=== PATIENT | female | born 1950 | race African-American/Black ===

== ENCOUNTER → 2016-12-25 | Outpatient (CLI) | payer OTHER | LOC: ULTRA 12:46 | DX: M79.605 Pain in left leg (principal); R60.9 Edema, unspecified ==

== ENCOUNTER → 2019-05-03 | Outpatient (CLI) | payer OTHER, BC | LOC: SJCVC 15:02 | DX: I45.10 Unspecified right bundle-branch block (principal); I25.810 Atherosclerosis of coronary artery bypass graft(s) without angina pectoris; E78.00 Pure hypercholesterolemia, unspecified; I63.421 Cerebral infarction due to embolism of right anterior cerebral artery; I73.9 Peripheral vascular disease, unspecified; I12.9 Hypertensive chronic kidney disease with stage 1 through stage 4 chronic kidney disease, or unspecified chronic kidney disease; E11.22 Type 2 diabetes mellitus with diabetic chronic kidney disease; N18.3 Chronic kidney disease, stage 3 (moderate); E11.319 Type 2 diabetes mellitus with unspecified diabetic retinopathy without macular edema; E11.40 Type 2 diabetes mellitus with diabetic neuropathy, unspecified; Z79.82 Long term (current) use of aspirin; Z86.73 Personal history of transient ischemic attack (TIA), and cerebral infarction without residual deficits; Z95.1 Presence of aortocoronary bypass graft; Z79.899 Other long term (current) drug therapy ==

== ENCOUNTER → 2019-06-20 | Outpatient (CLI) | payer OTHER, BC | LOC: SJCVCIMAG 13:49 | DX: I65.23 Occlusion and stenosis of bilateral carotid arteries (principal); I63.421 Cerebral infarction due to embolism of right anterior cerebral artery; I73.9 Peripheral vascular disease, unspecified ==

== ENCOUNTER → 2020-02-09 | Outpatient (CLI) | payer OTHER, BC | LOC: BC 10:12 | PROVIDERS: ATTEND Family Medicine | DX: Z12.31 Encounter for screening mammogram for malignant neoplasm of breast (principal); N60.82 Other benign mammary dysplasias of left breast; N60.81 Other benign mammary dysplasias of right breast; N64.89 Other specified disorders of breast ==

== ENCOUNTER 2020-04-10 17:48 | Inpatient (IN) | payer OTHER, BC ==
[~2020-04-10] VITALS: Ht 162.6 cm; Wt 127.0 kg
--- NOTE | ~2020-04-10 | EMS ---
[facility] [address] [place] [address] EMS Patient Care Report Name: MALA DEE Room #: REG JEFF Ellison#: [id number] Admission: 04/10/20 Attend Phys: Discharge: Date of : 50 Report #: [id number] THIS REPORT FOR: //name// Report Transmitted: 04/10/2020 20:15 EMS [facility] Incident [id number] @ 04/10/2020 17:01 Incident Location [address] [place] [address] Patient MALA NOVA Female, 69 Years 1950 Patient Address [address] [place] [address] Patient History Diabetes,Hypertension (HTN),Stroke/CVA,Hyperlipidemia,Hypothyroidism,Chronic Kidney Disease, Patient Allergies Sulfa, Patient Medications Other, Rosuvastatin, Glimepiride, Metformin, Aspirin, Bystolic, Levothyroxine, Vitamin D, Chief Complaint Increasing weakness Disposition Transported No Lights/[place] Dispatch Reason Sick Person Transported To [facility] Narrative H.P.I.: Weakness [facility] [address] [place] [address] EMS Patient Care Report Name: MALA DEE Room #: REG ER Scot#: [id number] Admission: 04/10/20 Attend Phys: Discharge: Date of : 50 Report #: [id number] H.P.I.: Mala Nova, a 69 y.o.f., has experienced increasing weakness over the past two weeks. She was being seen by her home health nurse today. The nurse was concerned Mala couldn't stand and walk, as she was normally able to do so. UPON ARRIVAL: OPFD was on scene and working on moving Mala from the upstairs to the downstairs with her electric stair chair. Once down stairs I found Mrs. Nova to be awake and in no distress. She had no complaints beyond weakness. DISPOSITION: Once downstairs her son assisted her onto the stretcher. We secured her in the prescribed manner and transported her non-emergently to [facility] as per her request. No incidents or changes en route. Info-only radio report with [facility]. We were directed to rm. 5. We slid her to the hospital bed using the sheet from the stretcher. song Penaloza R.N., received my report. Initial Vitals @17:27P: 98,R: 24,BP: 162/76,Pain: 0/10,GCS: 15,Temp: 101.6F,Glucose: 111,SpO2: 93,Revised Trauma: 12, Assessments @17:30MENTAL:Person Oriented,Time Oriented,Place Oriented,Event Oriented,SKIN:HEENT:Head/Face: No Abnormalities,LUNG SOUNDS:ABDOMEN:PELVIS//GI:EXTREMITIES:PULSE:NEURO:Abnormal Gait,Weakness Right-Sided,Weakness Left-Sided, Impression Generalized Weakness Procedures @PTASurgical Mask on PatientResponse: Unchanged Timeline ORIENTAL MEDICINE PRACTITIONER,Surgical Mask on Patient,Response: Unchanged 16:59,Call Received 16:59,Psap Call 17:01,Dispatched 17:01,En Route 17:09,On Scene 17:10,At Patient 17:24,Depart Scene [facility] [address] [place] [address] EMS Patient Care Report Name: CARLA NOVAFORD Room #: REG JEFF Lindsey.#: [id number] Admission: 04/10/20 Attend Phys: Discharge: Date of : 50 Report #: [id number] 17:27,BP: 162/76 M,PULSE: 98,RR: 24 R,SPO2: 93 Ox,ETCO2: ,B,PAIN: 0,GCS: 15, 17:41,At Destination 18:07,Call Closed Disclaimer v1.1 Copyright 2020 [employer] This EMS Care Summary contains data elements from the applicable legal record (which may be displayed differently). It is designed to provide pertinent information for the following purposes: continuity of care, clinical quality, and state data reporting. The complete legal record is available to ED staff and administrators of the receiving hospital in [employer] Patient Tracker. All data is provided "as is."
[2020-04-10 17:49] VITALS: BP 198/118
[2020-04-10 20:45] LABS: HEMATOCRIT 25.2 % (37.0-47.0); HEMOGLOBIN 7.9 gm/dL (12.0-15.0); MCH 30.3 pg (26.0-34.0); MCHC 31.6 g/dL (28.0-37.0); MCV 95.8 fL (80.0-100.0); PLATELET COUNT 293 thou/uL (150-400); RBC 2.62 mil/uL (4.20-5.00); WBC 17.4 thou/uL (4.0-11.0)
[2020-04-10 20:51] LABS: CALCIUM 8.9 mg/dL (8.5-10.1); CREATININE 1.6 mg/dL (0.6-1.0)
[2020-04-10 20:52] LABS: POTASSIUM 4.7 mmol/L (3.5-5.1)
[2020-04-10 21:02] LABS: ABSOLUTE NEUTROPHILS 14.6 thou/uL (1.4-8.2)
[2020-04-10 21:04] LABS: TOXIC GRANULATION 1+
[2020-04-10 21:05] LABS: ALBUMIN 2.4 g/dL (3.4-5.0); DIRECT BILIRUBIN 0.8 mg/dL (<0.1-0.2); TOTAL BILIRUBIN 2.8 mg/dL (0.2-1.0); TOTAL PROTEIN 6.3 g/dL (6.4-8.2); TROPONIN-I 0.31 ng/mL (<0.06)
[2020-04-10 21:24] LABS: URINE BILIRUBIN 1+ (Negative); URINE BLOOD 3+ (Negative); URINE CLARITY SL CLOUDY; URINE COLOR YELLOW; URINE GLUCOSE-RANDOM* NEGATIVE (Negative); URINE KETONES TRACE (Negative); URINE LEUKOCYTES-REFLEX NEGATIVE (Negative); URINE PROTEIN (DIPSTICK) 3+ (Negative); URINE SPECIFIC GRAVITY >= 1.030 (1.005-1.035)
[2020-04-10 21:26] LABS: ICTOTEST (BILI CONFIRMATORY) Positive (Negative); URINE NITRITE-REFLEX POSITIVE (Negative)
[2020-04-10 21:29] LABS: SQUAMOUS >10 Many /LPF (0-3)
[2020-04-10 21:30] LABS: BACTERIA-REFLEX >30 Many /HPF (None Seen); FINE GRANULAR CASTS 4-10 Moderate /LPF (None Seen)
[2020-04-10 21:31] LABS: AMORPHOUS URATES Few /LPF (None Seen); URINE RBC 3-10 Few /HPF (0-2); URINE WBC-REFLEX 6-15 Few /HPF (0-5)
[2020-04-10] MEDS ORDERED: TELMISARTAN80 MG PO (23:24)
[2020-04-10] MEDS ORDERED: EZETIMIBE10 MG PO (23:24)
--- NOTE | 2020-04-11 07:24 | EKG ---
[facility] [place] [address] ELECTROCARDIOGRAM REPORT Name: BAILEE DEE Room #: 170-5 ADM IN M.R.#: [id number] Admission: 04/10/20 Attend Phys: Victor Hugo Melo MD Discharge: Date of : 50 Report #: [id number] [facility] ED Test Date: 2020-04-10 Test Time: 21:28:51 Pat Name: BAILEE NOVA Department: Room: 170 Gender: F Chief Medical Officer: MPARK : 1950 Requested By: Alison Lopez Order Number: [id number] MD: Hilario Melvin Measurements Intervals [place] Rate: 82 P: 55 ND: 154 QRS: -39 QRSD: 170 T: 199 QT: 469 QTc: 548 Interpretive Statements Sinus rhythm Right bundle branch block LVH with IVCD and secondary repol abnrm Prolonged QT interval No previous ECG available for comparison Electronically Signed On 04-11-2020 7:24:40 REED PRESS FEEDER by Hilario Melvin [email or web address] <ELECTRONICALLY SIGNED> By: Hilario Melvin MD, [facility] 04/11/20 07 27 27 Hilario Melvin MD, FACC /EPI
[2020-04-11 12:00] VITALS: BP 176/46
--- NOTE | 2020-04-11 15:01 | NUR ---
69 year old female presents from home with weakness. Stroke history with residual L arm and leg weakness, patient reports normally is able to transfer and ambulate with a walker. Weakness has progressed over the last 2-3 weeks. She denies cough or dyspnea. Pt does have sacral wounds but denies having pain in this area. Reports of "low grade fever", temp of 99.7 on arrival. Pt reports her son takes care of her, no in home assistance. COVID AG negative on 04-10-2020 as well as PCR negative on 04-10-2020. Patient admitted under PCP Dr. Melo for Sepsis possibly from UTI, prior stroke with left sided residual arm and leg weakness, HTN, HLD and CHF. Patient admitted in IV Rocephin, checking urine for cultures and blood cultures PT/OT orders in for assessment of discharge needs. Son is listed at Antonio Urbano at [phone]. Spoke with son Antonio at 1430 on 04-11-2020 and patient does live independently where son checks on her. The son and the patient have been trying to get the patient to an acute rehab setting for increased weakness from home. Antonio reports today he was alerted that is mother was approved with her secondary [employer] for acute rehab. Spoke with risk consulting treasury director and a 5 North consult has been put in. Notified Dr. Melo as well. Explained CM role and notified CM will follow case for patients discharge needs.
[2020-04-11 16:05] VITALS: BP 176/46
[2020-04-11 17:19] VITALS: BP 177/71
--- NOTE | 2020-04-11 20:07 | NUR ---
ASSUMED CARE OF PT AT APPROX 1800 FROM ER D/T PROGRESSIVE WEAKNESS. ORIENTED PT TO ROOM. TOOK PHOTOS OF SACRAL WOUNDS. REPORTED OFF TO NOC NURSE.
[2020-04-11 22:07] VITALS: BP 178/51
[2020-04-12 04:12] VITALS: BP 164/57
[2020-04-12 05:03] LABS: HEMATOCRIT 23.3 % (37.0-47.0); HEMOGLOBIN 7.2 gm/dL (12.0-15.0); MCH 30.1 pg (26.0-34.0); MCHC 31.1 g/dL (28.0-37.0); MCV 96.6 fL (80.0-100.0); RBC 2.41 mil/uL (4.20-5.00); RDW 14.7 % (10.5-14.5); WBC 16.1 thou/uL (4.0-11.0)
[2020-04-12 05:08] LABS: CALCIUM 8.7 mg/dL (8.5-10.1); CREATININE 1.8 mg/dL (0.6-1.0); POTASSIUM 3.4 mmol/L (3.5-5.1)
--- NOTE | 2020-04-12 07:27 | NUR ---
PATIENT CARES WERE ASSUMED AT SHIFT CHANGE. PATIENT WAS ASSESSED AND MEDS WERE PASSED. PATIENT DID SLEEP MOST OF THIS SHIFT. NO REQUEST OR C/O PAIN. THIS SHIFT FOR THIS PATIENT WAS UNEVNTFULL
[2020-04-12 08:45] VITALS: BP 152/49
--- NOTE | 2020-04-12 09:00 | NUR ---
WOUND CARE CONSULT; PT ALERT, EATING BREAKFAST, TURN SUPERVISOR ELROY IN ROOM, STATES SHE TOOK PHOTO YESTERDAY AND PHOTO IS GOOD PICTURE OF WOUND STATUS, PT WANTS WOUND DR TO ASSESS WOUND, FROM PHOTO NONVIABLE TISSUE PRESENT, UNSTAGEABLE, PT STATES SON WAS CARING FOR WOUND AT HOME AND USING SOMETHING IN 'WHITE BOX' BUT COULD NOT RECALL WHAT IT WAS, STATES SHE HAS NOT SEEN A WOUND DR, WILL CONSULT DR OLIVARES/ELVIN TURN SUPERVISOR AWARE
--- NOTE | 2020-04-12 09:55 | NUR ---
PT ON SERVICE WITH [facility] PRIOR TO ADM FAXED CLINICAL UPDATE SPOKE WITH PATRICIA IN INTAKE SHE RECEIVED UPDATE. DP TO FOLLOW.
--- NOTE | 2020-04-12 10:53 | NUR ---
QUINTON Dee at [facility] [phone] returned call and did say as son had anticipated patient to be admitted to [facility] prior to admit, she would be willing to look at the patient again if need but understood the patient is in house and being treated for UTI and possible rehab on .
[2020-04-12 12:08] VITALS: BP 178/64
[2020-04-12 16:06] VITALS: BP 188/66
--- NOTE | 2020-04-12 18:24 | NUR ---
ASSUMED CARE OF PT AT SHIFT CHANGE. ASSESSMENTS CHARTED. MEDS GIVEN PER JUN. PT A&OX4, C/O PAIN ALL OVER. NOTIFIED , WHO PLACE ORDERS LATER IN THE DAY. KERR CATHETER CAME OUT WHILE MOVING PT, PUREWICK IN PLACE NOW. WOUND CARE ASSESSED SACRAL WOUNDS AND PLAN ON SURGICAL DEBRIDEMENT IN THE MORNING. PELVIC CT AND CARDIAC CLEARANCE TO BE COMPLETE BEFORE SURGERY. WILL CONTINUE TO MONITOR AND FOLLOW POC.
[2020-04-12 19:17] VITALS: BP 153/54
[2020-04-13] VITALS (28 sets, daily range): BP systolic 11–155; BP diastolic 45–70
[2020-04-13 03:56] LABS: HEMATOCRIT 22.2 % (37.0-47.0); HEMOGLOBIN 6.9 gm/dL (12.0-15.0); MCH 29.7 pg (26.0-34.0); MCV 95.7 fL (80.0-100.0); RBC 2.32 mil/uL (4.20-5.00); RDW 14.8 % (10.5-14.5); WBC 15.3 thou/uL (4.0-11.0)
[2020-04-13 04:04] LABS: CALCIUM 8.5 mg/dL (8.5-10.1); CREATININE 2.3 mg/dL (0.6-1.0)
--- NOTE | 2020-04-13 08:56 | NUR ---
pt assisted with with repositioning and cleaned up after 2 incon't episodes, prn pain meds given for wound pain, npo since mnoc for surg. scheduled for today. bg low at hs after juice and yogurt given called dr sheridan and received order for amp of D50 AND FLUIDS. REPORT GIVEN TO NEXT SHIFT TO CON'T PPOC.
--- NOTE | 2020-04-13 11:22 | NUR ---
DR. CROFT REPORTS CHANGE IN MENTAL STATUS. NORMALLY CONVERSANT YESTERDAY, NON-VERBAL TODAY. NSR PER TELE. BG LABILE. TO CAT SCAN FOR CT HEAD, THEN TO ICU BY BED, REPORT TO JOSELINE CADE. TELEMETRY EQUIPMENT SECURED.
--- NOTE | 2020-04-13 11:45 | NUR ---
PATIENT ADMITTED TO ICU 250 FROM 2N ROOM 206 VIA BED AT 1110. ATTACHED TO CARDIAC MONITORS AND BP MONITORED. O2 SAT PER PULSE OX. PATIENT IS LETHARGIC AND NOT SPEAKING. ACCUCHECK DONE AND NOTED TO BE 48. D50 GIVEN PER ORDER.
--- NOTE | 2020-04-13 13:00 | NUR ---
PATIENT IS MORE RESPONSIVE AND ABLE TO ANSWERS QUESTIONS WITH A YES OR NO RESPONSE AND MOVING RT ARM SPONTANOUSLY.
--- NOTE | 2020-04-13 14:30 | NUR ---
SPOKE WITH SON SHARLA AND UPDATED HIM ON HIS MOTHER'S STATUS.
--- NOTE | 2020-04-13 15:14 | EKG ---
[place] [address] [facility] [place] [address] ELECTROCARDIOGRAM REPORT Name: BAILEE DEE Room #: 250-P ADM IN M.R.#: [id number] Admission: 04/10/20 Attend Phys: Victor Hugo Melo MD Discharge: Date of : 50 Report #: [id number] [facility] Test Date: 2020-04-12 Test Time: 16:00:31 Pat Name: BAILEE NOVA Department: Room: 250 Gender: F Aircraft Rigging And Controls Mechanic: Spencer ZUNIGA : 1950 Requested By: Ambrosio Rowe Order Number: [id number] MD: Guille Plascencia Measurements Intervals [place]e Rate: 69 P: 34 NJ: 152 QRS: -36 QRSD: 164 T: 193 QT: 463 QTc: 496 Interpretive Statements Sinus rhythm Right bundle branch block LVH with IVCD and secondary repol abnrm Borderline prolonged QT interval Compared to ECG 04/10/2020 21:28:51 Premature ventricular complexes are now present Electronically Signed On 04-13-2020 15:14:03 ASSISTANT FOOTBALL COACH by Guille Plascencia [email or web address] <ELECTRONICALLY SIGNED> By: Guille Plascencia MD, [facility] 04/13/20 1514 1600 1600 Guille Plascencia MD, [facility] /EPI
--- NOTE | 2020-04-13 17:00 | NUR ---
PATIENT NOTED TO HAVE A CHANGE IN RHYTHM WITH WIDENING OF QRS COMPLEX. EKG DONE AT BEDSIDE AND UPDATED DR CROFT AND DR INIGUEZ, WITH TROPONIN AND MAG LEVELS. ORDERS NOTED FROM EACH.
--- NOTE | 2020-04-13 18:45 | NUR ---
PATIENT IS NOT PROGRESSING TOWARDS OUTCOME GOALS EVIDENT BY, CONTINUES TO HAVE BLOOD GLUCOSE LEVELS DROPPING INTO THE 30'S BUT REMAINS RESPONSIVE AND MOVING ABOUT MORE IN THE BED. SON, SHARLA CALLED FOR CONSENT TO GIVE BLOOD AND BECAME VERY ANGRY, ASKING WHAT ELSE COULD BE DONE INSTEAD OF GIVEN BLOOD, REQUESTING TO SPEAK WITH DR CROFT WHO WAS PAGED, UPDATED ON PATIENT STATUS AND BLOOD GLUCOSE LEVEL. ORDERS RECEIVED AND STATED HE WOULD SPEAK WITH THE SON. DR HAMILTON, THE NEUROLOGIST IN TO EXAMINE PATIENT. INFORMED OF LOW BLOOD SUGARS. ORDERS RECEIVED.
[2020-04-14] VITALS (31 sets, daily range): BP systolic 114–169; BP diastolic 45–79
--- NOTE | 2020-04-14 02:53 | NUR ---
This RN to bedside at 1900. This RN spoke with aleisha Alvarez around 2100 04/13/20 to update son on patients status and to obtain 2 nurse consent for patient to receive blood. All questions answered.
--- NOTE | 2020-04-14 03:00 | NUR ---
Lab having difficulty drawing labs to recheck Hg and K on patient. Discussed with Adela Jackson NP labs, ordered to give 1 unit PRBC's ordered based on prior labs. Also discussed fluactuating blood sugars, orders to change D10 rate. Will continue to monitor. Pt not progressing towards goals.
[2020-04-14 04:19] LABS: HEMATOCRIT 30.9 % (37.0-47.0); MCH 30.4 pg (26.0-34.0); MCHC 31.3 g/dL (28.0-37.0); MCV 97.1 fL (80.0-100.0); RBC 3.19 mil/uL (4.20-5.00); RDW 15.8 % (10.5-14.5); WBC 20.9 thou/uL (4.0-11.0)
[2020-04-14 04:24] LABS: HEMOGLOBIN 9.7 gm/dL (12.0-15.0)
[2020-04-14 04:33] LABS: CALCIUM 8.7 mg/dL (8.5-10.1); CREATININE 2.8 mg/dL (0.6-1.0); POTASSIUM 3.7 mmol/L (3.5-5.1)
--- NOTE | 2020-04-14 06:42 | NUR ---
This RN spoke to Dr. Melo regarding patients uncontrolled pain. New orders for IV pain medication. Discussed progress and erratic blood sugars. Patient is not progressing towards goals. Will continue to monitor.
--- NOTE | 2020-04-14 08:25 | NUR ---
PT W/DECLINE IN MEDICAL STATUS AND SUBSEQUENT TRANSFER TO ICU. PER DEPT POLICY, PT WILL BE PLACED ON HOLD. REQUEST NEW P.T. ORDER ONCE PT IS APPROPRIATE TO PARTICIPATE IN THERAPEUTIC ACTIVITIES.
--- NOTE | 2020-04-14 09:04 | NUR ---
PT GOING TO SURGERY AT [address] CROFT. ORDER TO GIVE 1 AMP D5O PRIOR TO LEAVING FOR SURGERY. DR. BHARDWAJ HERE AND STATES HE WILL GET CONSENT FROM SON.
--- NOTE | 2020-04-14 10:20 | EKG ---
[address] [place] [address] ELECTROCARDIOGRAM REPORT Name: CARLA NOVABAILEE Room #: 250-P ADM IN M.R.#: [id number] Admission: 04/10/20 Attend Phys: Victor Hugo Melo MD Discharge: Date of : 50 Report #: [id number] [facility] Test Date: 2020-04-13 Test Time: 15:57:32 Pat Name: BAILEE NOVA Department: Room: 250 P Gender: F Casting House Laborer: junito : 1950 Requested By: Victor Hugo Melo Order Number: [id number] MD: Ambrosio Rowe Measurements Intervals [place] Rate: 82 P: 42 MI: 136 QRS: -39 QRSD: 166 T: 173 QT: 474 QTc: 554 Interpretive Statements Sinus rhythm Atrial premature complexes in couplets Right bundle branch block LVH with IVCD and secondary repol abnrm Compared to ECG 04/12/2020 16:00:31 Atrial premature complex(es) now present Electronically Signed On 04-14-2020 10:20:10 SHAFT MECHANIC by Ambrosio Rowe [email or web address] <ELECTRONICALLY SIGNED> By: Ambrosio Rowe MD 04/14/20 1020 1557 1557 Ambrosio Rowe MD /EPI
[2020-04-14 10:38] LABS: APTT 28.6 Seconds (24.5-32.8); FIBRINOGEN 281.8 mg/dL (210-360); INR 1.3; PROTIME 13.5 Seconds (9.3-11.4)
[2020-04-14 10:51] LABS: ALBUMIN 1.9 g/dL (3.4-5.0); CALCIUM 8.6 mg/dL (8.5-10.1); CREATININE 3.2 mg/dL (0.6-1.0); POTASSIUM 3.5 mmol/L (3.5-5.1); TOTAL BILIRUBIN 2.6 mg/dL (0.2-1.0)
--- NOTE | 2020-04-14 11:49 | NUR ---
DR. BHARDWAJ CALLED PER HIS REQUEST TO GIVE HIM RESULTS OF LAB WORK WELL ULTRASOUND. PHYSICIAN STATED HE HAS ALREAD SEEN THE RESULTS AND HAS ADDED NEW ORDERS FOR STAT PIPIDA SCAN AND ROUTINE CT OF ABDOMEN AND PELVIS. PHYSICAIN STATES TO CALL HIM BACK WITH THESE RESULTS.
--- NOTE | 2020-04-14 14:36 | NUR ---
1436-pt to [facility] for pipida scan. pt transported by [facility] tech and icu charge weigher. pt is on transport hospital monitor.
--- NOTE | 2020-04-14 15:16 | NUR ---
A #6F TRIPLE LUMEN CENTRAL LINE WAS PLACED STAT AND PER MEDICAL NECESSITY PRIOR TO SURGERY. REQUESTED BY DR. CARRENO. THE RIGHT JUGULAR WAS WIDLEY PATENT. LINE WAS 25CM AND PLACED PER HOSPITAL POLICY. A STAT CHEST XRAY CONFIRMED LINE IN PROPER POSITION
--- NOTE | 2020-04-14 17:29 | NUR ---
CT RESULTS OF ABD AND PELVIS ARE RESULTED AND WERE CALLED BY THIS RN TO DR. CARRENO AND DR. CROFT. DR. CARRENO STATES THE PT WILL NEED TO GO TO OR [facility] AND THAT HE WILL CALL ANESTHESIA TO COORDINATE. HE ALSO STATED HE HAS PT'S SON'S PHONE NUMBER AND THAT HE WILL CALL HIM ABOUT PLAN TO OPERATE WELL.
--- NOTE | 2020-04-14 19:26 | NUR ---
PT LEFT UNIT FOR SURGERY AT 1645. PT WAS TRANSPORTED VIA BED WITH C PROGRAMMER AND ANESTHESIA PHYSICIAN. PT WAS GIVEN [address] MAIER ORDER PRIOR TO GOING TO SURGERY. PT HAD JUST HAD 25 GM D50 PRIOR TO THAT. DR MAIER AWARE AND ORDERED TO GIVE THE 2ND 25 GMS.
--- NOTE | 2020-04-14 22:39 | NUR ---
This RN spoke with Antonio Urbano, son to discuss patients status. Updated on care and all questions answered. Pt recovering well after surgery. Vital signs stable and no complaints of pain. Will continue to monitor.
[2020-04-15] VITALS (34 sets, daily range): BP systolic 89–158; BP diastolic 37–78
[2020-04-15 04:24] LABS: HEMATOCRIT 24.1 % (37.0-47.0); MCH 29.8 pg (26.0-34.0); MCHC 30.9 g/dL (28.0-37.0); MCV 96.5 fL (80.0-100.0); RBC 2.5 mil/uL (4.20-5.00); RDW 15.8 % (10.5-14.5); WBC 19.1 thou/uL (4.0-11.0)
[2020-04-15 04:28] LABS: HEMOGLOBIN 7.5 gm/dL (12.0-15.0)
[2020-04-15 04:38] LABS: ALBUMIN 1.6 g/dL (3.4-5.0); CALCIUM 8.1 mg/dL (8.5-10.1); CREATININE 3.6 mg/dL (0.6-1.0); POTASSIUM 4.1 mmol/L (3.5-5.1); TOTAL BILIRUBIN 2.2 mg/dL (0.2-1.0); TOTAL PROTEIN 5.4 g/dL (6.4-8.2)
--- NOTE | 2020-04-15 11:39 | EKG ---
[place] [address] [facility] [place] [address] ELECTROCARDIOGRAM REPORT Name: CARLA NOVABAILEE Room #: 250-P ADM IN M.R.#: [id number] Admission: 04/10/20 Attend Phys: Victor Hugo Melo MD Discharge: Date of : 50 Report #: [id number] [facility] Test Date: 2020-04-15 Test Time: 11:18:14 Pat Name: BAILEE NOVA Department: Room: 250 P Gender: F Wire Web Worker: : 1950 Requested By: Ambrosio Rowe Order Number: [id number] MD: Ambrosio Rowe Measurements Intervals [place] Rate: 62 P: 28 NE: 156 QRS: -35 QRSD: 168 T: 97 QT: 493 QTc: 501 Interpretive Statements Sinus rhythm Ventricular premature complex Right bundle branch block LVH with secondary repolarization abnormality Compared to ECG 04/13/2020 15:57:32 Electronically Signed On 04-15-2020 11:39:02 SCENIC DESIGNER by Ambrosio Rowe [email or web address] <ELECTRONICALLY SIGNED> By: Ambrosio Rowe MD 04/15/20 1139 1118 111 Ambrosio Rowe MD /BILLIE
--- NOTE | 2020-04-15 14:58 | NUR ---
CONSULTED TO REPLACED A CENTRAL LINE THE PATIENT PULLED OUT THIS AM. ORDER OBTAINED AND CONSENT NOTED. DISCUSED WITH THE PATIENT SHE IS MORE ALERT THIS AM. THE RIGHT IJ WAS WIDLEY PATENT. A #6F TRIPLE LUMEN CENTRAL LINE WAS PLACED PER HOSPITAL POLICY. LINE WAS 25CM AND ADVANCED WITHOUT DIFFICULTY. A STAT CHEST XRAY SHOWING LINE IN ATRIUM. LINE WITHDREW 2CM AND RELEASED FOR USE
--- NOTE | 2020-04-15 19:56 | NUR ---
NOTIFIED THAT THE PATIENT HAD PULLED OUT HER CENTRAL LINE AGIAN. SHE IS NOW RESTRAINED. A NEW CENTRAL LINE WAS PLACED PER PROTOCOL
--- NOTE | 2020-04-15 20:01 | NUR ---
ASSUMED CARE OF PT 0700. NEW CENTRAL LINE INSERTED IN AM PT SELF DISCONTINUED DURING SHIFT CHANGE. 1220 GLUCOSE HIGH. D10 STOPPED. NS STARTED. 1255 RENAL NOTIFIED OF LOW URINE OUTPUT. 1L BOLUS OF NS GIVEN. ID CONSULTED TODAY FOR PROPPER ABX COVERAGE. 1900 INITIATED RESTRAINTS AFTER PER GUERDA AFTER PT REMOVED CENTRAL LINE FOR SECOND TIME. NEW LINE IN PLACE 1999. AFEBRILE. OUTPUT 150 IN SHIFT. RENAL AWARE OF OUTPUT. NO BM TODAY.
[2020-04-16] VITALS (30 sets, daily range): BP systolic 131–173; BP diastolic 53–88
--- NOTE | 2020-04-16 07:39 | HC ---
[facility] [place] [address] CONSULTATION Name: BRYN DEESA Room #: 250-P ADM IN M.R.#: [id number] Admission: 04/10/20 Attend Phys: Victor Hugo Melo MD Discharge: Date of : 50 Report #: [id number] THIS REPORT FOR: cc: Victor Hugo Melo MD, Neal A. MD Barry,Fredis Lloyd MD ~ DATE OF SERVICE: 04/15/2020 INFECTIOUS DISEASE CONSULTATION ATTENDING PHYSICIAN: Dr. Melo. REASON FOR EVALUATION: Necrotizing skin and soft tissue infection involving the perineal site. HISTORY OF PRESENT ILLNESS: Chart reviewed, patient examined. This is a 69-year-old woman with known diabetes mellitus, has been complicated by vasculopathy, has had previous stroke involving the right middle cerebral artery, residual left spastic hemiparesis, who apparently was able to ambulate with a walker, had presented with progressive weakness, low-grade temperature elevation on 04/10, noted to have chronic gluteal left posterior thigh ulcers. On evaluation, was noted to have some fluctuance. Imaging suggested a large necrotizing abscess along the left upper inner thigh in subcutaneous space extending toward the left ischial tuberosity, soft tissue gas, underwent operative debridement, was found to have abscess, also noted to have urinary tract infection with isolation of E. coli and Proteus, has been on therapy at this point with ceftriaxone. She is seen in the Intensive Care Unit. She is not on supplemental oxygen. It is difficult to ascertain what her baseline is. She does respond, although it is not clear that she is able to comprehend. She has not been febrile. Otherwise, hemodynamically she is relatively stable. ALLERGIES: LISTED TO SULFA. CURRENT MEDICATIONS: Include ceftriaxone, atorvastatin, levothyroxine, metoprolol, levetiracetam, and oxycodone. PAST MEDICAL HISTORY: Diabetes mellitus, history of previous stroke with left-sided hemiplegia, hypertension, and hyper-cholesterol. SOCIAL HISTORY: She is disabled, nonsmoker, no ethanol, no illicit drug use. FAMILY HISTORY: Noncontributory. REVIEW OF SYSTEMS: Severely limited due to her encephalopathy. [facility] [address] [place] [address] CONSULTATION Name: CARLA NOVADALLAS Room #: 250-P [facility] IN .R.#: [id number] Admission: 04/10/20 Attend Phys: Victor Hugo Melo MD Discharge: Date of : 50 Report #: [id number] PHYSICAL EXAMINATION: GENERAL: She appears chronically ill and undernourished. She is in qutg-oq-rabpaqug distress, somewhat of a flat affect. VITAL SIGNS: Temperature most recent 96.9, pulse 61, respirations 11, blood pressure 138/60. SKIN: Warm, dry, no rashes. HEENT: Normocephalic. Extraocular muscles intact. NECK: Appears to be supple. LUNGS: Diminished breath sounds. HEART: Borderline bradycardic. No appreciated murmur. ABDOMEN: Mildly distended, soft, nontender. /RECTAL: Deferred. LABORATORY DATA: Chest x-ray shows cardiomegaly and mild interstitial opacities has been unchanged. Electrolytes: Sodium 134, potassium 4.1, chloride 100, bicarbonate 23, anion gap of 11, BUN and creatinine 42 and 3.6, glucose of 142. AST of 85, ALT of 36, alkaline phosphatase of 172, albumin 1.6, total protein of 5.4. CBC: White count of 19.1, H and H 7.5 24.1, platelets of 310. Operative note was reviewed and debridement of the left gluteal IT gangrene including skin, subcutaneous tissue, muscle and bone. CT abdomen and pelvis preop describes a large defect containing necrotizing abscess along the left upper inner thigh in the subcutaneous space extends toward the left ischial tuberosity. Hepatobiliary scan does not shows abnormal gallbladder ejection fraction of 18% without evidence of cystic duct obstruction. ASSESSMENT: Necrotizing infection involving the perineal area. The patient has diabetes mellitus. This is certainly difficult to ascertain if it has been well controlled, appears to be quite malnourished as well. We will continue empiric therapy, presume polymicrobial etiology to her abscess including aerobes, anaerobes as well as gram-positive negatives presumably as well. She is allergic to SULFA. We will extend the treatment with Zosyn. ___ she is in renal failure at this point. Continue wound care as prescribed, may need additional debridements. Prognosis is quite guarded. <ELECTRONICALLY SIGNED> By: Fredis Roy MD 04/16/20 0739 1049 1400 Fredis Roy MD /nt
[2020-04-16 07:43] LABS: HEMOGLOBIN 7.5 gm/dL (12.0-15.0); MCH 29.9 pg (26.0-34.0); MCHC 31.3 g/dL (28.0-37.0); MCV 95.6 fL (80.0-100.0); RBC 2.51 mil/uL (4.20-5.00); RDW 15.6 % (10.5-14.5); WBC 19.5 thou/uL (4.0-11.0)
--- NOTE | 2020-04-16 07:46 | NUR ---
ASSUMED PT CARE AT 1900. VSS. PT A&0 TO SELF ALONE. PT CONFUSED, AND CALLS OUT FOR HER SON SHARLA. U/0 THIS SHIFT WAS 125ML, DR MENDOZA AWARE. BATH THIS SHIFT. PT IS STABLE, NO SIGNIFICANT CHANGES OVER NOC. WILL CONTINUE TO MONITOR PER POC
[2020-04-16 08:16] LABS: ALBUMIN 1.7 g/dL (3.4-5.0); CALCIUM 7.9 mg/dL (8.5-10.1); POTASSIUM 4.3 mmol/L (3.5-5.1); TOTAL BILIRUBIN 1.9 mg/dL (0.2-1.0); TOTAL PROTEIN 5.7 g/dL (6.4-8.2)
--- NOTE | 2020-04-16 11:21 | HC ---
[facility] [place] [address] CONSULTATION Name: BRYN DEESA Room #: 250-P ADM IN M.R.#: [id number] Admission: 04/10/20 Attend Phys: Victor Hugo Melo MD Discharge: Date of : 50 Report #: [id number] THIS REPORT FOR: cc: Victor Hugo Melo MD, Neal A. MD Stephens, Thad A. MD ~ DATE OF SERVICE: 04/12/2020 WOUND CARE CONSULTATION PERSONAL PHYSICIAN: Victor Hugo Melo MD CHIEF COMPLAINT: Left gluteal and left posterior thigh ulcers. HISTORY OF PRESENT ILLNESS: This is a 69-year-old female who was admitted for sepsis, UTI and generalized weakness. Upon admission, the patient was noted to have a decubitus ulcer in her left gluteal and ischial region. I have been asked to see the patient for this. The patient states that she sleeps in a recliner most of the time and for the past week has been in it daily for most of the days. The patient states that is where the ulceration came from. The patient states she has never had any other ulcers before. The patient states she did have a low-grade fever at home. The patient initially was said that she had no pain in the ulcer; however, according to the initial H and P; however, when I spoke to the patient, the patient states, yes she does have fairly exquisite pain in that area. There are no other associated ulcerations noted at this time. PAST MEDICAL HISTORY: Significant for diabetes mellitus, hypertension, hypercholesterolemia, previous CVA with left-sided hemiplegia. CURRENT MEDICATIONS: Multiple, I reviewed the patient's medication list. DRUG ALLERGIES: SULFA, ____. SOCIAL HISTORY: The patient resides at home with her son, who is one of her primary caregivers. Does not smoke or drink alcohol. FAMILY HISTORY: Not pertinent to current medical condition. REVIEW OF SYSTEMS: CONSTITUTIONAL: The patient had low-grade fevers at home, but denies chills or sweats. NEUROLOGIC: The patient has progressive generalized weakness for the past several days with a chronic left-sided hemiparesis. Denies headache. EYES: No complaints. [facility] [address] [place] [address] [facility] #: [facility]-P ADM IN M.R.#: [id number] Admission: 04/10/20 Attend Phys: Victor Hugo Melo MD Discharge: Date of : 50 Report #: [id number] ENT: No complaints. CARDIAC: The patient denies chest pain, palpitations, has chronic lower extremity edema. RESPIRATORY: The patient denies any shortness of breath, cough or wheezes. GASTROINTESTINAL: The patient complains of generalized nausea, but no abdominal pain, no vomiting or diarrhea. GENITOURINARY: The patient denies urgency or frequency, but however, it was felt that the patient to have a urinary tract infection. SKIN: There are decubitus ulcers in the left gluteal and ischial region. PHYSICAL EXAMINATION: VITAL SIGNS: Temperature 36.9, pulse 69, respirations 18, BP 178/64. GENERAL: This is an alert and oriented x 3, ill-appearing black female, who is morbidly obese. HEENT: Normocephalic, atraumatic. Mucous membranes are dry. Pupils are round. Sclerae white. NECK: Supple, without JVD. LUNGS: Clear. HEART: Regular. ABDOMEN: Obese, soft, nontender. EXTREMITIES: Evaluation of the left ischiogluteal region reveals an unstageable decubitus ulcer, which is fluctuant and tender to palpation. Periwound is erythematous and warm. There is also scattered stage 3 decubitus ulcers in the left posterior thigh, which are nontender. EXTREMITIES: The patient has chronic venous insufficiency with stasis dermatitis, 2+ edema. Bilateral heels are intact. Distal pulses are intact. NEUROLOGIC: Cranial nerves 2-12 grossly intact. Motor and sensory grossly intact. LABORATORY DATA: White count 16.1, down from 17.4; hemoglobin 7.2. Urinalysis showed negative leukocyte esterase. Potassium 3.4. BUN 32, creatinine 1.8. BNP initially 2 days ago was 32,143. Albumin is 2.4. IMPRESSION AND PLAN: 1. Unstageable decubitus ulcer, left lower gluteal/ischial tuberosity region concerning for underlying abscess, possibly the source of the sepsis. Plan for this will be to start morphine, Silvadene cream to the area b.i.d. and p.r.n. We will put a low air loss mattress and turn every 2 hours. Surgical consult for possible I and D. I will contact Dr. Melo to decide which surgeon he would like to have contacted. I will speak to the surgeon about possibly imaging the area with a CT scan. 2. Stage 3 decubitus ulcer, left posterior thigh. Our plan for this will be to morphine, Silvadene as well as low air loss mattress and turn every 2 hours. 3. Protein-calorie malnutrition -- severe with albumin 2.4. Plan for protein-calorie malnutrition would be maximized the patient's oral protein [address] [address] CONSULTATION Name: BAILEE DEE Room #: 250-P ADM IN M.R.#: [id number] Admission: 04/10/20 Attend Phys: Victor Hugo Melo MD Discharge: Date of : 50 Report #: [id number] supplementation. 4. Generalized debility. Plan for the generalized debility would be utilize physical and occupational therapy for strengthening. 5. Continue all current meds. <ELECTRONICALLY SIGNED> By: Addi Linder MD 04/16/20 1121 [id number] 0036 Addi Linder MD /nt
--- NOTE | 2020-04-16 16:34 | NUR ---
PT HAD DEBRIDEMENT 04/14/20. WC FOLLOWING. PT CONTINUES ON IV ZOSYN. AWAITING THERAPY EVALS ONCE ABLE TO PARTICIPATE. REFERRAL HAD BEEN SENT TO [facility] THEY ARE FOLLOWING. CM TO FOLLOW INDICATED WITH DC PLANNING.
--- NOTE | 2020-04-16 17:36 | NUR ---
PT RESTING THE MAJORITY OF THE DAY. RIGHT WRIST RESTRAINED. SACRAL WOUND WAS OBSERVED/CLEANED/DRESSED BY WOUND CARE TEAM. NEW DTI FOUND ON LEFT HEEL. RIJ IN PLACE AND FUNCTIONING. OLIGUREA, PROVIDER AWARE. NO BM, AFEBRILE, REFUSES ALL MEALS. D50 GIVEN DUE TO HYPOGLYCEMIA. PT AND FAMILY HAVE BEEN UPDATED AND EDUCATED ON PT CONDITION AND POC. PT SLOWLY PROGRESSING TOWARDS POC.
[2020-04-17] VITALS (21 sets, daily range): BP systolic 100–168; BP diastolic 39–78
--- NOTE | 2020-04-17 04:50 | NUR ---
CARE ASSUMED 1900. PT ALERT AND ORIENTED TO SELF. PT IS ABLE TO MAKE SOME SOME NEEDS KNOWN LIKE WHEN SHE IS PAIN OR WANTS TO USE THE BATHROOM . C/O OF GENERALIZED PAIN. PT HAS LEFT SIDED WEAKNESS FROM PREVIOUS CVA. PT HAS GENERALIZED EDEMA ALL OVER HER BODY. NOTED TO HAD EXTENSIVE EDEMA TO THE RIGH ARM, WEEPING AND REDNESS AROUND THE FOREARM. WILL COMMUNICATED WITH PHYSICIAN. VITALS STABLE BUT BRADYCARDIC WHILE ASLEEP. DENIES ANY OTHER CONCERNS. WILL CONTINUE TO MONITOR.
[2020-04-17 06:22] LABS: ALBUMIN 1.6 g/dL (3.4-5.0); CALCIUM 7.7 mg/dL (8.5-10.1); CREATININE 4.2 mg/dL (0.6-1.0); PHOSPHORUS 5.4 mg/dL (2.6-4.7); POTASSIUM 4.2 mmol/L (3.5-5.1)
--- NOTE | 2020-04-17 09:04 | NUR ---
KERR CLAMPED IN EFFORT TO SEND URINE SAMPLE.
[2020-04-17 11:52] LABS: URINE BILIRUBIN NEGATIVE (Negative); URINE BLOOD 3+ (Negative); URINE CLARITY CLOUDY; URINE COLOR YELLOW; URINE GLUCOSE-RANDOM* NEGATIVE (Negative); URINE KETONES NEGATIVE (Negative); URINE LEUKOCYTES 1+ (Negative); URINE NITRITE NEGATIVE (Negative); URINE PROTEIN (DIPSTICK) 2+ (Negative); URINE UROBILINOGEN 0.2 E.U./dl (0.2-1.0)
[2020-04-17 11:56] LABS: PROT/CREAT RATIO 1.9; URINE CREATININE-RANDOM* 69.6 mg/dL; URINE PROTEIN-RANDOM* 133.4 mg/dL (<11.9)
[2020-04-17 12:19] LABS: AMORPHOUS URATES Moderate /LPF (None Seen); SQUAMOUS 0-3 Few /LPF (0-3)
[2020-04-17 12:20] LABS: BACTERIA 1-9 Few /HPF (None Seen); COARSE GRANULAR CASTS 0-3 Few /LPF (None Seen); URINE RBC 3-10 Few /HPF (0-2); URINE WBC None Seen /HPF (0-5)
--- NOTE | 2020-04-17 13:12 | 2DMMODE ---
[facility] [address] [place] [address] 2 D/M-MODE ECHOCARDIOGRAM Name: BRYN DEESA Room #: 250-P ADM IN M.R.#: [id number] Admission: 04/10/20 Attend Phys: Victor Hugo Melo MD Discharge: Date of : 50 Report #: [id number] THIS REPORT FOR: cc: Victor Hugo Melo MD, Neal A. MD Lammoglia, Francisco J. MD ~ ADDENDUM APPROVED REPORT Study performed: 04/16/2020 10:18:59 EXAM: Comprehensive 2D, Doppler, and color-flow Echocardiogram Patient Location: ICU Room #: 250 BSA: 2.21 HR: 80 bpm BP: 132/63 mmHg Other Information Study Quality: Adequate Risk Factors: Cardiac Risk Factors: HTN, Hyperlipidemia Indications CVA/TIA Hypertension/HDD 2D Dimensions IVSd: 12.31 (7-11mm) LVOT Diam: 19.61 (18-24mm) LVDd: 46.16 mm PWd: 16.18 (7-11mm) Ascending Ao: 30.17 (22-36mm) LVDs: 36.20 (25-40mm) Left Atrium: 40.87 (27-40mm) Aortic Root: 24.07 mm Volumes Left Atrial Volume (Systole) Single Plane 4CH: 45.41 mL Single Plane 2CH: 71.90 mL LA ESV Index: 30.00 mL/m2 Aortic Valve AoV Peak Lj.: 1.40 m/s AO Peak Gr.: 7.89 mmHg LVOT Max P.[address] [facility] [address] [place] [address] 2 D/M-MODE ECHOCARDIOGRAM Name: CARLA NOVACORAM Room #: 250-P [facility] IN ..#: [id number] Admission: 04/10/20 Attend Phys: Victor Hugo Melo, Discharge: Date of : 50 Report #: [id number] Mean Gr.: 3.13 mmHg LVOT Mean P.76 mmHg AO V2 Mean: 0.79 m/s LVOT Max V: 0.66 m/s AO V2 VTI: 27.30 cm LVOT Mean V: 0.39 m/s MATTHIAS (VTI): 1.54 cm2 LVOT V1 VTI: 13.92 cm MATTHIAS Vmax: 1.42 cm2 SV (LVOT): 42.03 mL Mitral Valve MV Peak Gr.: 2.88 mmHg ERO: 79.49 mm2 MV Mean Gr.: 1.08 mmHg E/A Ratio: 1.2 MV Decel. Time: 213.70 ms MV E Max Lj.: 0.87 m/s MV A Lj.: 0.74 m/s MV Max Lj.: 0.85 m/s MV Mean Lj.: 0.47 m/s MV VTI: 328.27 mm MVA VTI: 128.04 mm2 MR Radius: 0.91 cm MV PHT: 61.97 ms MR Als. Lj: 1.02 m/s MVA (PHT): 1.64 cm2 MR Flow: 532.87 mL/s TDI E/Lateral E': 9.67 Lateral E' Lj.: 0.09 m/s Pulmonary Valve PV Peak Lj.: 0.80 m/s PV Peak Gr.: 2.53 mmHg IA End Vmax: 0.71 m/s Pulmonary Vein P Vein S: 0.50 m/s P Vein A: 0.35 m/s P Vein D: 0.22 m/s P Vein A Dur.: 120.0 msec P Vein S/D Ratio: 2.27 Tricuspid Valve TR Peak Lj.: 3.09 m/s RAP Estimate: 48.00 mmHg TR Peak Gr.: 38.29 mmHg PA Pressure: 10.00 mmHg Left Ventricle The left ventricle is normal size. Mild concentric left ventricular hypertrophy. Left ventricular systolic function is mild to moderately decreased. LVEF is 35-40%. By visual estimation. Calculated ejection fraction appears to be greater than visualized 2D imaging Transmitral Doppler flow pattern suggests impaired LV relaxation. Right Ventricle [facility] [address] [place] [address] 2 D/M-MODE ECHOCARDIOGRAM Name: CARLA NOVACORAM Room #: 250-P ADM IN M.R.#: [id number] Admission: 04/10/20 Attend Phys: Victor Hugo Melo, Discharge: Date of : 50 Report #: [id number] The right ventricle is normal size. The right ventricular systolic function is normal. Atria Left atrium is at the upper limits of normal. The right atrium size is normal. Aortic Valve The aortic valve is normal in structure. No aortic regurgitation is present. There is no aortic valvular stenosis. Mitral Valve The mitral valve is normal in structure. Moderate to severe mitral regurgitation with an eccentric jet directed laterally along the left atrial wall No evidence of mitral valve stenosis. Tricuspid Valve The tricuspid valve is normal in structure. Moderate to severe tricuspid regurgitation. Pulmonic Valve The pulmonary valve is normal in structure. There is no pulmonic valvular regurgitation. Great Vessels The aortic root is normal in size. The inferior vena cava is dilated with a decrease in inspiratory collapse. Pericardium There is no pericardial effusion. <Conclusion> The left ventricle is normal size. Mild concentric left ventricular hypertrophy. LVEF is 35-40%. By visual estimation. Calculated ejection fraction appears to be greater than visualized 2D imaging Left atrium is at the upper limits of normal. The aortic valve is normal in structure. The mitral valve is normal in structure. Moderate to severe mitral regurgitation with an eccentric jet directed laterally along the left atrial wall The tricuspid valve is normal in structure. Moderate to severe tricuspid regurgitation. The pulmonary valve is normal in structure. The inferior vena cava is dilated with a decrease in inspiratory [facility] [address] [place] [address] 2 D/M-MODE ECHOCARDIOGRAM Name: BAILEE DEE Room #: 250-P [facility] IN M.R.#: [id number] Admission: 04/10/20 Attend Phys: Victor Hugo eMlo, Discharge: Date of : 50 Report #: [id number] collapse. There is no pericardial effusion. <ELECTRONICALLY SIGNED> By: Fredrick Frank MD 04/17/201311 11 11 Fredrick Frank MD /INF
[2020-04-17 14:52] LABS: HEMATOCRIT 23.9 % (37.0-47.0); HEMOGLOBIN 7.4 gm/dL (12.0-15.0); MCH 29.7 pg (26.0-34.0); MCHC 30.9 g/dL (28.0-37.0); MCV 96.2 fL (80.0-100.0); PLATELET COUNT 286 thou/uL (150-400); RBC 2.49 mil/uL (4.20-5.00); RDW 15.9 % (10.5-14.5); WBC 13.7 thou/uL (4.0-11.0)
--- NOTE | 2020-04-17 15:29 | NUR ---
JOSELINE Escudero kindly received report. pt to transfer to critical care tele bed- RM# 206. New pt room not ready at this time.
[2020-04-17 15:35] LABS: ABSOLUTE NEUTROPHILS 12.5 thou/uL (1.4-8.2); NUCLEATED RBCS 2 /100WBC; PLATELET ESTIMATE NORMAL
--- NOTE | 2020-04-17 18:07 | NUR ---
>>>>>>>>>>>> 1600 room not clean. >>>>>>>>>>>> 1715 room clean. with 2 rn assist, pt transferred to #206 in icu bed. >>>>>>>>>>>> 1735 notified Kota RN of need for 1600 antibiotic and 1700 blood sugar.
--- NOTE | 2020-04-17 20:01 | NUR ---
PT TRANSFERED FROM ICU ABOUT 1800PM, PT KMOWS HER NAME AND BIRTHDAY , BUT PT IS CONFUSED , PT IS ON R HAND SOFT RESTRANIT , PT'S BS WAS 44 AT 1810PM, RN HAS GIVING D50% 50ML IVP , RECHECK BS 84, PT IS CONTINUING D5@ 50ML/HR. RN HAS REPORTED TO NEXT SHIFT TO KEEP EYE OM PT.
[2020-04-18] VITALS (13 sets, daily range): BP systolic 124–169; BP diastolic 43–68
--- NOTE | 2020-04-18 04:01 | NUR ---
Assumed pt care at 1900. Pt is alert but confused. Pt is laying in bed. Continues to verbalize pain. Assessment completed and documented. Repositioning done. Pt is stable through the night. Hypoglycemia continues to be noted. Hypoglycemia treated. Scheduled meds administered to pt. Pt is NPO for a debridment. No acute events overnight. Continue to monitor. No further needs at this time.
[2020-04-18 05:36] LABS: ALBUMIN 1.8 g/dL (3.4-5.0); CREATININE 4.4 mg/dL (0.6-1.0); PHOSPHORUS 5.3 mg/dL (2.6-4.7); POTASSIUM 4.3 mmol/L (3.5-5.1)
[2020-04-18 07:26] LABS: HEMOGLOBIN 7.6 gm/dL (12.0-15.0); MCH 29.8 pg (26.0-34.0); MCHC 30.4 g/dL (28.0-37.0); RBC 2.55 mil/uL (4.20-5.00); WBC 13.6 thou/uL (4.0-11.0)
--- NOTE | 2020-04-18 13:11 | NUR ---
Patient cont in restraints. Patient to participate with therapy once more stable. Plan referral to [facility]OP.
--- NOTE | 2020-04-18 14:07 | PATH ---
[facility] [address] [place] [address] PATHOLOGY RPT PROCEDURE Name: CARLA NOVAMALA Room #: 206-P ADM IN M.R.#: [id number] Admission: 04/10/20 Date of : 50 Discharge: Report #: [id number] Path Case #: [id number] [facility] Accession Number: [id number] . 01 Material submitted: . PART A: gluteal cleft - LEFT GLUTEAL TISSUE. Modifiers: left PART B: bone - LEFT ISCHIAL TUBEROSITY BONE. Modifiers: left . 01 Clinical history: . LEFT GLUTEAL FORNIER'S GANGRENE DEBRIDEMENT WITH IRRIGATION WEAKNESS, UTI, SEPSI, ELEV TROPONIN . 02 Diagnosis: A. Skin and subcutaneous tissue, left gluteal tissue, debridement: - Marked acute inflammation along with ulceration as well as fibrinoid degeneration. . B. Bone, left ischial tuberosity, debridement: - Bone with marked acute inflammation. (IUV:sophia; 04/17/2020) QMS 04/17/2020 1334 Local . 02 Electronically signed: . Kandy Godoy MD, Pathologist NPI- [id number] . 01 Gross description: . A. The specimen is received in formalin, labeled "Mala Nova, left gluteal tissue". Received are multiple segments of yellow-brandt to spain-brown, necrotic-appearing soft tissue admixed with fragments of pale brandt to necrotic-appearing skin measuring 19.4 x 15.6 x 5.2 cm in aggregate dimensions. The specimen is submitted representatively in cassette A1. . B. The specimen is received in formalin, labeled "Mala Nova, left ischial tuberosity bone". Received are multiple segments of spain-brandt tissue admixed with a slight amount of light brandt bone measuring 3.0 x 2.2 x 0.5 cm in aggregate dimensions. The specimen is submitted entirely in cassette B1, following decalcification. (CAA; 04/16/2020) QA/QA 04/16/2020 1505 Local . 02 Pathologist provided ICD-10: L08.9, L98.499, M89.8X8 . 02 [place] [address] PATHOLOGY RPT PROCEDURE Name: MALA DEE Room #: 206-P ADM IN M.R.#: [id number] Admission: 04/10/20 Date of : 50 Discharge: Report #: [id number] Path Case #: [id number] Specimen Comment: A courtesy copy of this report has been sent to [phone] Specimen Comment: Report sent to Performed at: [address], [place] [id number] MD Ld Borges MD Phone: [phone] Performed at: [address] [id number] MD Kandy Goody MD Phone: [phone]
--- NOTE | 2020-04-18 14:16 | HC ---
[facility] [place] [address] CONSULTATION Name: BAILEE DEE Room #: 206-P ADM IN M.R.#: [id number] Admission: 04/10/20 Attend Phys: Victor Hugo Melo MD Discharge: Date of : 50 Report #: [id number] THIS REPORT FOR: cc: Victor Hugo Melo MD, Neal A. MD [facility] MD ~ DATE OF SERVICE: 04/12/2020 CARDIOLOGY CONSULTATION REASON FOR CONSULTATION: Cardiac clearance. HISTORY OF PRESENT ILLNESS: The patient is a 69-year-old, -Spanish female, with a history of coronary artery disease, status post CABG in 2010 as well as peripheral vascular disease, prior CVA with residual weakness, diabetes, hypertension, hyperlipidemia, chronic renal insufficiency and chronic sacral decubitus ulcer. She presented to the hospital with weakness and fever. She is going tomorrow for an I and D of her sacral decubitus ulcer to remove any infected tissue. Currently from a cardiovascular standpoint, she has been stable. She denies any problems with chest pain or chest heaviness. She denies any problems with PND or orthopnea. She reports that her exertional dyspnea is at baseline. A 12-point review of systems was performed and was negative other than what I mentioned above. PAST MEDICAL HISTORY: As above. HISTORY OF PRESENT ILLNESS: Does not smoke. ALLERGIES: Include SULFA. MEDICATIONS: Include ceftriaxone, Bystolic, losartan, Synthroid, atorvastatin, metformin and glimepiride. Vitals on admission, temp was 37.2, pulse 70, respirations 18, blood pressure 188/66, sats 100%. PHYSICAL EXAMINATION: GENERAL: She is in no acute distress, alert and oriented x 3. HEENT: Oropharynx is clear. NECK: Supple, no thyromegaly. HEART: Regular rate and rhythm. No murmurs, rubs or gallops. She has no elevated JVD. LUNGS: Clear bilaterally. [facility] [address] [place] [address] [facility] #: [address] [place] [address] IN M.R.#: [id number] Admission: 04/10/20 Attend Phys: Victor Hugo Melo MD Discharge: Date of : 50 Report #: [id number] ABDOMEN: Soft, nontender. EXTREMITIES: No clubbing, cyanosis or edema. Cranial nerves 2-12 are grossly intact. LABORATORY DATA: Hemoglobin 7, white count 16, platelets 360. Sodium 142, potassium 3.4, creatinine 1.8. Troponin 0.3. COVID negative. ProBNP 32,000. Her chest x-ray shows that she has some ____ wires. She has an enlarged cardiac silhouette. There is no pulmonary edema. Her 12-lead EKG shows sinus rhythm with a right bundle branch block with occasional PVCs and no ischemic changes. Telemetry shows sinus rhythm with occasional PVCs and some short runs of supraventricular tachycardia lasting less than 5 seconds. In summary, the patient is a 69-year-old female with a history of known coronary artery disease, who is stable from a cardiovascular perspective. She had an elevated troponin, which was likely related to her poorly-controlled blood pressure, renal insufficiency and current infection. There is no ischemia on her EKG nor does she have any symptoms to suggest coronary ischemia. Therefore, no further cardiac testing is warranted and she is okay to proceed with her surgical intervention tomorrow. Recommend continuing to optimize her cardiovascular risk factors and up-titrate on her blood pressure medications as needed. Thank you for allowing me to participate in her care and please call with any further questions. <ELECTRONICALLY SIGNED> By: Ambrosio Rowe MD 04/18/20 1416 1838 0104 Ambrosio Rowe MD /nt
--- NOTE | 2020-04-18 18:20 | NUR ---
ASSUMED CARE AT SHIFT CHANGE, S/P I&D TODAY, POST SURGERY VSS, AND C/O PAIN OF PAIN AT TIMES. Q2 POSITIONED FOR COMFORT, KERR TO DD WITH SMALL AMOUNT OF URINE, MD IS AWARE AND WILL CONTINUE WITH CURRENT POC.
--- NOTE | 2020-04-19 03:35 | NUR ---
Assumed pt care at 1900. Pt is alert to self but confused. No sign of distress noted in pt. Continues to verbalize pain. Assessment completed and documented. Scheduled meds administered to pt. No acute events OVERNIGHT. No further needs at this time.
[2020-04-19 04:49] VITALS: BP 179/59
[2020-04-19 05:47] LABS: ALBUMIN 1.8 g/dL (3.4-5.0); CALCIUM 8.4 mg/dL (8.5-10.1); CREATININE 4.8 mg/dL (0.6-1.0)
[2020-04-19 07:49] VITALS: BP 149/53
--- NOTE | 2020-04-19 09:26 | NUR ---
If decision made for dobhoff, recommend start nepro at 25ml/hr with goal rate of 45ml/hr. Defer any fluid needs to renal.
[2020-04-19 12:03] VITALS: BP 156/60
[2020-04-19 15:37] VITALS: BP 151/53
--- NOTE | 2020-04-19 19:48 | NUR ---
Assumed care at shift change, alert to self only and assessment as charted. Patient as bedside and was updated with patient progress and POC. Debhoff placed RT narse, and 2nd KUB orders for placement confirmation. Wound dressing done. And will continue with POC.
[2020-04-19 20:46] VITALS: BP 130/74
[2020-04-20] VITALS (7 sets, daily range): BP systolic 117–139; BP diastolic 46–66
--- NOTE | 2020-04-20 03:34 | NUR ---
Assumed pt care at 1900. Pt is drowsy. No sign of distress noted in pt. Pt is still has a low appetite. Assessment completed and documented. Pain med administered. Scheduled meds administered to pt. Wound care done. Repositioning. Tube feeding initiated. No acute events overnight. Continue to monitor, no further needs at this time.
[2020-04-20 05:39] LABS: HEMOGLOBIN 6.9 gm/dL (12.0-15.0); WBC 14.9 thou/uL (4.0-11.0)
[2020-04-20 05:41] LABS: HEMATOCRIT 22.3 % (37.0-47.0); MCH 29.6 pg (26.0-34.0); MCHC 30.7 g/dL (28.0-37.0); MCV 96.2 fL (80.0-100.0); PLATELET COUNT 269 thou/uL (150-400); RBC 2.32 mil/uL (4.20-5.00); RDW 15.1 % (10.5-14.5)
[2020-04-20 05:56] LABS: ALBUMIN 1.9 g/dL (3.4-5.0); CALCIUM 8.1 mg/dL (8.5-10.1); CREATININE 5.3 mg/dL (0.6-1.0); POTASSIUM 4.7 mmol/L (3.5-5.1); TOTAL BILIRUBIN 1.3 mg/dL (0.2-1.0); TOTAL PROTEIN 5.9 g/dL (6.4-8.2)
[2020-04-20 09:01] LABS: ABSOLUTE NEUTROPHILS 13.6 thou/uL (1.4-8.2); ANISOCYTOSIS 1+; NUCLEATED RBCS 8 /100WBC
--- NOTE | 2020-04-20 15:52 | NUR ---
Chart reviewed and case discussed with the care team. Pt is being followed by wound care, ID, Renal, and surgery. She has had two debridements of her gluteal abbcess. Her po intake has been poor and she had a dobhoff placed for nutritional support. Her cre continues to rise and urine outpt poor. Renal has spoken with her son and no dialysis anticipated. Therapy will need to be reordered as appropriate as pt now out of restraints. No weekend dc anticipated. DC timeframe and needs are uncertain. The pt will not be able to return home at dc and may need to consider LTAC referral vs [facility] due to her level of care needs. Will follow.
--- NOTE | 2020-04-20 16:06 | PATH ---
[facility] [address] [place] [address] PATHOLOGY RPT PROCEDURE Name: BRYN DEESA Room #: 206-P ADM IN M.R.#: [id number] Admission: 04/10/20 Date of : 50 Discharge: Report #: [id number] Path Case #: [id number] [facility] Accession Number: [id number] . 01 Material submitted: . PART A: bone - LEFT ISCHIAL TUBEROSITY BONE. Modifiers: left PART B: gluteal cleft - GLUTEAL SKIN AND SUBCUTANEOUS MUSCLE . 01 Clinical history: . DEBRIDEMENT DECUBITUS ULCER GLUTEAL ABSCESS . 02 Diagnosis: A. Bone, left ischial tuberosity, debridement: - Fragments of bone, cartilage as well as dense fibrous tissue with acute inflammation, history of gluteal abscess. - Abundant fragments of fibroadipose and fibrovascular connective tissue with fat necrosis as well as acute inflammation and fibrinoid degeneration. . B. Skin and subcutaneous tissue gluteal skin and subtunaeous muscle, debridement: - Skin and subcutaneous showing ulceration, fibrinoid degeneration, as well as marked acute inflammation extending throughout. (IUV:sophia; 04/20/2020) QMS 04/20/2020 1247 Local . 02 Electronically signed: . Kandy Godoy MD, Pathologist NPI- [id number] . 01 Gross description: . A. The specimen is received in formalin, labeled "Mala Hammer, ischial tuberosity bone, left". Received are multiple segments of pale brandt tissue admixed with fragments of bone measuring 3.0 x 2.9 x 0.4 cm in aggregate dimensions. The specimen is submitted representatively in cassette A1, following light decalcification. . B. The specimen is received in formalin, labeled "Mala Hammer, gluteal skin, subcutaneous muscle". Received are several segments of yellow-brandt to dusky spain-brown soft tissue with attached spain-brown skin measuring 11.8 x 9.9 x 5.2 cm in aggregate dimensions. Sectioning reveals bright yellow, lobulated to slightly necrotic cut surfaces. Extensive sectioning reveals no grossly distinct muscle tissue. The specimen is submitted representatively in cassettes B1 and B2. (CAA; 04/19/2020) QAC/QAC 04/20/[address] [address] PATHOLOGY RPT PROCEDURE Name: MALA DEE Room #: 206-P ADM IN M.R.#: [id number] Admission: 04/10/20 Date of : 50 Discharge: Report #: [id number] Path Case #: [id number] . 02 Pathologist provided ICD-10: M89.8X8, M79.89, L08.9, L98.499 . 02 CPT . 405102, [id number], [id number] Specimen Comment: A courtesy copy of this report has been sent to [phone] Specimen Comment: [id number] Specimen Comment: Report sent to / DR CROFT Performed at: [address] [facility], [place] [id number] MD Ld Borges MD Phone: [phone] Performed at: [address] [id number] MD Kandy Godoy MD Phone: [phone]
[2020-04-20 18:54] LABS: HEMATOCRIT 26.1 % (37.0-47.0); HEMOGLOBIN 8.2 gm/dL (12.0-15.0)
--- NOTE | 2020-04-20 20:01 | NUR ---
RECEIVED PT'S CARE AROUND 0735; PT. ON BED; RESTING WITH EYES CLOSED; EQUAL CHEST RISING NOTICED; SB ON THE MONITOR; ANSWER BACK TO NAME; DURING AM ASSESSMENT PT. ALERT TO PERSON; NO C/O PAIN; FEEDING RUNNING AT 25 ML/H; NO RESIDUAL; INCREASE RATE TO 35 ML/H; THROUGH THE DAY NO C/O NAUSEA OR ABDOMINAL PAIN; ONE UNIT OF BLOOD GIVEN; HH RE-ASSESSED ABOVE 8; WOUND CARE PERFORMED; TURNED FROM SIDE TO SIDE; PRN MEDICATION GIVEN AFTER WOUND CARE; REASSESSMENT PT. RESTING WITH EYES CLOSED; BG ON THE 200s; PHYSICIAN NOTIFIED; ORDERS RECEIVED; NS FLUIDS STARTED; BOOTS ORDERED; NO RECEIVED; 225 ML URINE OUTPUT THROUGH THE DAY; PHYSICIANS AWARE OF LOW OUTPUT; SB ON THE MONITOR; ASSESSMENT CHARGED; FOLLOWING POC; PASSED ON REPORT;
--- NOTE | 2020-04-21 00:27 | NUR ---
PT ALERT TO PERSON, AWAKENS TO VERBAL AND TACTILE STIMULATION. PT LETHARGIC, FALLING BACK TO SLEEP EASILY. PT ASSESSED WITH FLACC OF 2, PT NOTED TO GRIMACE AND CRY WITH REPOSITIONING. PT REMAINS NPO WITH DOBHOFF SECURED IN PLACE IN RIGHT NARE, PATENT AND INFUSING WITHOUT ISSUE AT 45ML/HR. PT RESTING IN BED THROUGHOUT, NONAMBULATORY. FREQUENT REPOSITIONING ENCOURAGED. LOW AIR LOSS MATTRESS REMAINS IN PLACE. SOFT WRIST RESTRAINT IN PLACE TO RUE. CAPILLARY REFILL LESS THAN 3SEC IN ALL EXTREMITIES. PT ENCOURAGED TO NOTIFY STAFF FOR ALL NEEDS, CALL LIGHT WITHIN REACH, BED LOCKED IN LOWEST POSITION, BED ALARM ON, FREQUENT MONITORING WILL CONTINUE.
--- NOTE | 2020-04-21 03:52 | NUR ---
Assumed pt care at 0000. Pt is alert and oriented. No sign of distress noted. NSR noted on monitor noted through the night. Pt is stable. Denies any pain. Scheduled AM meds administered. Continue to monitor. No further needs at this time.
--- NOTE | 2020-04-21 03:58 | NUR ---
Assumed pt care at 0000. Pt is drowsy. No sign of distress noted. Pt responds to command. Wound care dressing completed. Scheduled meds administered to pt. Pain med administered. Continue to monitor. No further needs at this time.
[2020-04-21 04:45] VITALS: BP 126/46
[2020-04-21 05:22] LABS: ALBUMIN 1.9 g/dL (3.4-5.0); CALCIUM 8.2 mg/dL (8.5-10.1); CREATININE 5.3 mg/dL (0.6-1.0); POTASSIUM 4.5 mmol/L (3.5-5.1)
[2020-04-21 08:11] VITALS: BP 131/45
[2020-04-21 11:45] VITALS: BP 133/68
[2020-04-21 15:41] VITALS: BP 132/65
[2020-04-21 20:15] VITALS: BP 146/66
--- NOTE | 2020-04-21 20:17 | NUR ---
ASSUMED CARE PT SHIFT CHANGE. ASSESSMENTS CHARTED.MEDS GIVEN PER JUN. PT LETHARGIC THROUGHOUT DAY, EASILY AROUSABLE, RESPONDS TO NAME. PT SLEPT MOST OF SHIFT. TUBE FEEDS CONTINUE THROUGH AMARILIS AT GOAL RATE OF 45 WITH NO RESIDUALS. LARGE BM THIS SHIFT. WOUND CARE COMPLETED PER ORDERS. PAIN MEDS GIVEN X1 PRIOR TO WOUND DRESSING CHANGE. PT TURNED TOLERATED. UOP ADEQUATE. RESTRAINTS REMAIN IN PLACE ON RIGHT ARM.PT REMAINS EDEMATOUS. AFEBRILE. PT IN NAP, RESTING COMFORTABLY IN BED. CONTINUING TO MONITOR WHILE FOLLOWING POC. REPORT PASSED TO NOC RN.
[2020-04-22 04:45] VITALS: BP 152/46
[2020-04-22 05:04] LABS: HEMATOCRIT 25.8 % (37.0-47.0); MCH 29.3 pg (26.0-34.0); MCHC 31.1 g/dL (28.0-37.0); MCV 94.2 fL (80.0-100.0); PLATELET COUNT 257 thou/uL (150-400); RBC 2.74 mil/uL (4.20-5.00); RDW 15.9 % (10.5-14.5); WBC 21.1 thou/uL (4.0-11.0)
[2020-04-22 05:19] LABS: ALBUMIN 1.7 g/dL (3.4-5.0); CREATININE 5.5 mg/dL (0.6-1.0); PHOSPHORUS 5.7 mg/dL (2.5-4.9); POTASSIUM 4.7 mmol/L (3.5-5.1); TOTAL PROTEIN 5.7 g/dL (6.4-8.2)
[2020-04-22 06:13] LABS: ABSOLUTE NEUTROPHILS 19.2 thou/uL (1.4-8.2); METAMYELOCYTES 1 %; NUCLEATED RBCS 1 /100WBC
[2020-04-22 06:14] LABS: ANISOCYTOSIS 1+; POLYCHROMASIA 1+
[2020-04-22 09:16] VITALS: BP 148/59
[2020-04-22 11:27] VITALS: BP 153/49
[2020-04-22 15:04] VITALS: BP 131/51
--- NOTE | 2020-04-22 19:44 | NUR ---
Dr. Melo paged to renew the restraint order, awaiting response.
[2020-04-22 20:19] VITALS: BP 152/60
[2020-04-23 03:26] VITALS: BP 138/88
[2020-04-23 03:39] LABS: HEMATOCRIT 24.6 % (37.0-47.0); HEMOGLOBIN 7.7 gm/dL (12.0-15.0); MCH 29.9 pg (26.0-34.0); MCHC 31.4 g/dL (28.0-37.0); MCV 95.1 fL (80.0-100.0); PLATELET COUNT 237 thou/uL (150-400); RBC 2.59 mil/uL (4.20-5.00); WBC 19.1 thou/uL (4.0-11.0)
[2020-04-23 03:47] LABS: ALBUMIN 1.6 g/dL (3.4-5.0); CALCIUM 8.1 mg/dL (8.5-10.1); CREATININE 5.6 mg/dL (0.6-1.0); PHOSPHORUS 6.2 mg/dL (2.6-4.7); POTASSIUM 4.8 mmol/L (3.5-5.1); TOTAL BILIRUBIN 0.8 mg/dL (0.2-1.0); TOTAL PROTEIN 5.5 g/dL (6.4-8.2)
[2020-04-23 06:12] LABS: ABSOLUTE NEUTROPHILS 16.6 thou/uL (1.4-8.2); METAMYELOCYTES 2 %
[2020-04-23 07:55] VITALS: BP 151/56
--- NOTE | 2020-04-23 08:54 | NUR ---
ASSESSMENTS CHARTED, MEDS CHARTED GIVEN. PAIN MEDS GIVEN PRIOR TO MOVEMENT POSSIBLE. RIGHT HAND RESTRAINTS IN PLACE DURING SHIFT. PATIENT ON LASIX THERAPY. DRESSING WAS NOT CHANGED DURING SHIFT DUE TO PRIORITY OF CARE. FALL PRECAUTIONS IN PLACE DURING SHIFT.
[2020-04-23 11:48] VITALS: BP 135/56
--- NOTE | 2020-04-23 14:30 | NUR ---
PT ON SERVICE WITH [facility] PRIOR TO ADM FAXED CLINICAL UPDATE SPOKE WITH PATRICIA IN INTAKE SHE RECEIVED UPDATE.
[2020-04-23 16:05] VITALS: BP 151/53
[2020-04-23 20:07] VITALS: BP 144/53
--- NOTE | 2020-04-24 03:31 | NUR ---
Assumed pt care at 1900. Pt is very lethargic but respond to name. No sign of distress noted in pt. Pt is stable. Assessment completed and documented. Repositing. Scheduled meds administered to pt. No acute events overnight. Continue to monitor. No further needs at this time.
[2020-04-24 03:58] VITALS: BP 148/57
[2020-04-24 05:38] LABS: ALBUMIN 1.6 g/dL (3.4-5.0); CALCIUM 8.2 mg/dL (8.5-10.1); CREATININE 5.9 mg/dL (0.6-1.0); TOTAL BILIRUBIN 0.7 mg/dL (0.2-1.0); TOTAL PROTEIN 5.8 g/dL (6.4-8.2)
[2020-04-24 08:07] VITALS: BP 128/46
[2020-04-24 11:28] VITALS: BP 134/47
[2020-04-24 12:53] VITALS: BP 130/54
[2020-04-24 15:20] VITALS: BP 130/48
--- NOTE | 2020-04-24 18:23 | NUR ---
RECEIVED PT'S CARE AROUND 717; PT. ON BED; RESTING WITH EYES CLOSED; EQUAL CHEST RISING NOTICED; SR ON THE MONITOR; DURING AM ASSESSMENT ALERT TO PERSON; MOVE HEAD FROM RIGHT TO LEFT WHEN ASKED IF HAVE SOME PAIN; EDUCATED ABOUT AM MEDICATION; NO RESIDUAL; PER DR. CROFT CONSULT BACK TO NEURO DUE TO PT'S MENTAL STATUS; DR. MANN CONSROSARIOL BACK; MRI SCREENING PERFORMED WITH SON; UNKOWN IF PT. MIGHT HAVE AN ANEURISM CLIP; CHILD ADOLESCENT CARE NOTIFIED; SCREENING FAXED; NOTIFED DOFFHOBB ON THE 42 CM; PER RECORDS INITIAL CRISTAL 65 CM; PHYSICIAN NOTIFIED; ORDERS RECEIVED; PER IR OK TO ADVANCE TUBE TO REACH THE STOMACH; ADVANCED TO END OF NUMERATIONS; PER KUB TIP AT THE STOMACH; PHYSICIAN NOTIFIED; FEEDING RESUME; SON NOTIFIED ABOUT POC AND PT HEALTH STATUS; ST. UNDERSTANDING; NOTICED R. RED, SWELLING EYE WITH BLISTERS; PHYSICIAN NOTIFIED; ORDERS RECEIVED; WOUND CARE PERFOMED; VS WNL; TURNED FROM SIDE TO SIDE THROUGH THE DAY; ASSESSMENT CHARGED; FOLLOWING POC; WILL PASS ON REPORT;
[2020-04-24 19:34] VITALS: BP 134/51
[2020-04-25 00:19] VITALS: BP 142/46
[2020-04-25 05:14] LABS: ALBUMIN 1.5 g/dL (3.4-5.0); CALCIUM 8.2 mg/dL (8.5-10.1); CREATININE 5.8 mg/dL (0.6-1.0); POTASSIUM 4.9 mmol/L (3.5-5.1)
[2020-04-25 05:17] VITALS: BP 147/66
--- NOTE | 2020-04-25 06:41 | NUR ---
PT CARE ASSUMED 1900. PT ALERT TO SELF, LETHERGIC AND APPEAR WITHDRAWAL. DECREASES VERBAL RESPONSE. VITALS STABLE. NO FEVER. TURNS TOLERATED. WOUND CARE COMPLETE. PT REMAINS SR ON THE MONITOR. NO PAIN EXCEPT WITH TURNS. WILL CONTINUE TO MONITOR.
[2020-04-25 07:40] VITALS: BP 142/55
[2020-04-25 11:00] VITALS: BP 138/67
[2020-04-25 15:30] VITALS: BP 141/48
[2020-04-25 21:15] VITALS: BP 128/54
--- NOTE | 2020-04-25 21:21 | NUR ---
RECEIVED PT'S CARE AROUND 724; PT. ON BED; RESTING WITH EYES CLOSED; SR ON THE MONITOR; DURING SHIFT CHANGED DR. KELLY HORTON; STMisti NOT CHANGES THROUGH THE DAY; DURING AM ASSESSMENT PT. ALERT TO PERSON; C/O PAIN WITH MINIMAL TOUCH; BED BAD AND WOUND CARE PERFORMED DURING AM; GONE FOR MRI DURING THE MORNING; DURING THE AFTERNOON PT'S SON AT THE BED SIDE; UPDATED ABOUT PT'S HEALTH; ST. UNDERSTANDING; REQUESTED TO BE CALLED BY OUTSOLE SCHEDULER; OUTSOLE SCHEDULER NOTIFIED; EDUCATED ABOUT PT'S HEALTH STATUS DECREASING AND POSSIBLE NOT ABLE TO TOLERATE DIALYSIS; NOTIFIED ABOUT PT'S C/O PAIN WITH MINIMAL TACTILE STIMULATION; ST. UNDERSTANDING; RECOMMENDED COMFORT CARE; ST. UNDERSTANDING; WOUND CARE PERFORMED; ASSESSMENT CHARGED; FOLLOWING POC; PASSED ON REPORT;
[2020-04-26] VITALS (9 sets, daily range): BP systolic 124–153; BP diastolic 50–64
[2020-04-26 05:53] LABS: ALBUMIN 1.4 g/dL (3.4-5.0); CALCIUM 8.2 mg/dL (8.5-10.1); CREATININE 5.7 mg/dL (0.6-1.0); PHOSPHORUS 5.8 mg/dL (2.5-4.9)
--- NOTE | 2020-04-26 06:01 | NUR ---
CARE ASSUMED 1900. NOTICED PATIENT DOBHOFF HAVING PULLED BACK A LITTLE. DOBHOFF ADVANCED A FEW MORE CMs, AND KUB OBTAINED. KUB OBTAINED , SHOWING GAS DISTENSION. PHYSICIAN NOTIFIED, TUBE FEEDING HELD OVERNIGHT. PT NOT PROGRESSING TOWARDS GOAL. WOUND CARE COMPLETED. WILL CONTINUE TO MONITOR
--- NOTE | 2020-04-26 16:59 | NUR ---
Case discussed with the care team. The attending has spoken with the pt's son about her prognosis and plan of care. Continuing aggressive tx and likely need for diverting ostomy and peg tube in hopes of healing wound. 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 Will need to have therapy re eval. May want to consider LTAC referral.
--- NOTE | 2020-04-26 19:35 | NUR ---
PT CARE ASSUMED AT 0700. ASSESSMENTS CHARTED. MEDICATIONS CHARTED. RIJ 3L PICC. KERR. FECAL MGT SYS. SINUS RHYTHM BBB. TUBE FEEDING: NEPRO 0/45 GOAL. PT CRIES OUT IN AT THE BAREST TOUCH.
[2020-04-27] VITALS (8 sets, daily range): BP systolic 119–152; BP diastolic 40–74
[2020-04-27 05:51] LABS: ALBUMIN 1.4 g/dL (3.4-5.0); CALCIUM 8.4 mg/dL (8.5-10.1); CREATININE 5.7 mg/dL (0.6-1.0); PHOSPHORUS 5.9 mg/dL (2.5-4.9); POTASSIUM 5.4 mmol/L (3.5-5.1)
--- NOTE | 2020-04-27 08:07 | NUR ---
pt assessment as charted dobhoff repositioned and kub done to acknowledge placement TF restarted with water flushes, pain med given before wound dressing change, cedillo and fecal mngmnt with adequate output thru the shift, vss, repositioned q 2 hrs and as needed, report given to next shift to con't ppoc.
[2020-04-27 10:30] LABS: ABSOLUTE NEUTROPHILS 14.5 thou/uL (1.4-8.2); BASOPHILS 0.8 % (0.0-2.0); EOSINOPHILS 1.7 % (0.0-3.0); HEMATOCRIT 25.5 % (37.0-47.0); HEMOGLOBIN 7.8 gm/dL (12.0-15.0); LYMPHOCYTES 4.1 % (24.0-44.0); MCH 29.2 pg (26.0-34.0); MCHC 30.6 g/dL (28.0-37.0); MCV 95.2 fL (80.0-100.0); MONOCYTES 4.2 % (1.0-8.0); PLATELET COUNT 243 thou/uL (150-400); POLYS 89.2 % (36.0-66.0); RBC 2.68 mil/uL (4.20-5.00); RDW 16.3 % (10.5-14.5); WBC 16.3 thou/uL (4.0-11.0)
--- NOTE | 2020-04-27 20:17 | NUR ---
PT CARE ASSUMED AT 0700. ASSESSMENTS CHARTED. MEDICATIONS CHARTED. RIJ 3L PICC. KERR. TUBE FEEDING; NEPRO, 45/45 GOAL. FECAL MGT SYS. DOBHOFF AT 70. RT WIST RESTRAINT. ACHS.
[2020-04-28 04:30] VITALS: BP 155/70
--- NOTE | 2020-04-28 04:43 | NUR ---
PT IS AWAKE BUT NOT ORIENTED YELLS OUT. PAIN MEDS GIVEN FOR YELLING OUT APPEARS IN PAIN. NOW AFTER MEDS RESTING. WOUND CARE DONE ON SACRAL WOUND DAKINS AND DRESSING DONE PER NURSING CARE FOR PT. TURN AND REPOSTION WILL PILLOWS FOR COMFORT. PT HAS A KERR AND A FECAL MANAGEMENT SYSTEM IN PLACE. WILL CONTINUE ONGOING WOUND CARE TREATMENT PER NURSING. TOLERATING TUBE FEEDING WELL AT GOAL.
[2020-04-28 05:37] LABS: ALBUMIN 1.5 g/dL (3.4-5.0); CALCIUM 8.5 mg/dL (8.5-10.1); CREATININE 5.6 mg/dL (0.6-1.0); PHOSPHORUS 5.5 mg/dL (2.5-4.9)
[2020-04-28 07:55] VITALS: BP 147/88
[2020-04-28 12:00] VITALS: BP 145/79
[2020-04-28 17:00] VITALS: BP 11/96
--- NOTE | 2020-04-28 18:40 | NUR ---
PT RTLIJ WAS PULLED BACK AND MALPOSITIONED. OTW EXCHANGE FOR A [id number]. PLEASE SEE NI FOR DETAILS
--- NOTE | 2020-04-28 19:45 | NUR ---
ASSUMED CARE OF PT AT SHIFT CHANGE. ASSESSMENTS CHARTED. MEDS GIVEN PER MAR. PT ALERT TO SELF, CALLS OUT, TALKS BUT MAKES LITTLE SENSE. TREATED RESTLESSNESS WITH IV PAIN MEDS. DOBHOFF IS OCCLUDED, SO NUTRITION STOPPED AT APPROX 0900. PLAN IS TO SPEAK WITH FAMILY REGARDING COMFORT CARE.
[2020-04-28 19:50] VITALS: BP 133/54
--- NOTE | 2020-04-29 03:39 | NUR ---
PT IS AWAKE. DRESSING CHANGE DONE TO COCCYX SECURITY ASSISTED PT IS VERY OBESE. DAKINS WET TO DRY DONE WITH NURSING INTERVENTION. TOLERATING TUBE FEEDINGS. REPOSITION WITH PILLOWS ELEVATING LEGS BILTERAL. FECAL AND KERR SYSTEM IN PLACE. PAIN MEDS GIVEN SEE MAR FOR TIME OF ADMINISTRATION OF MEDS. EYES ARE RED . EYE DROPS FOR EYES. ABDOMEN IS ROUND BOWEL SOUNDS ACTIVE. WILL CONTINUE TO MONITOR AND ASSESS PER NURSING.
[2020-04-29 04:44] VITALS: BP 140/76
[2020-04-29 08:00] VITALS: BP 145/62
[2020-04-29 11:12] LABS: ALBUMIN 1.4 g/dL (3.4-5.0); CALCIUM 8.7 mg/dL (8.5-10.1); CREATININE 5.1 mg/dL (0.6-1.0); PHOSPHORUS 5.7 mg/dL (2.6-4.7); POTASSIUM 5.1 mmol/L (3.5-5.1)
[2020-04-29 11:35] VITALS: BP 145/66
[2020-04-29 15:40] VITALS: BP 139/55
--- NOTE | 2020-04-29 18:04 | NUR ---
ASSUMED PATIENT CARE AT 0700. ALERT. CONFUSED. APHASIA. TOLERATED TF. LEFT BUTTOCK DRESSING CHANGED PER ORDER. GENERLIZED EDEMA. VSS. SLOWLY TOWARDS POC GOALS.
[2020-04-29 20:20] VITALS: BP 145/68
[2020-04-30 03:45] VITALS: BP 130/51
[2020-04-30 06:20] LABS: ALBUMIN 1.4 g/dL (3.4-5.0); CALCIUM 8.4 mg/dL (8.5-10.1); PHOSPHORUS 5.2 mg/dL (2.5-4.9); POTASSIUM 5.2 mmol/L (3.5-5.1)
[2020-04-30 06:44] LABS: HEMATOCRIT 23.1 % (37.0-47.0); HEMOGLOBIN 7.3 gm/dL (12.0-15.0); MCH 29.4 pg (26.0-34.0); MCHC 31.6 g/dL (28.0-37.0); MCV 93.1 fL (80.0-100.0); RBC 2.48 mil/uL (4.20-5.00); RDW 16.2 % (10.5-14.5); WBC 14.4 thou/uL (4.0-11.0)
[2020-04-30 08:00] VITALS: BP 144/69
--- NOTE | 2020-04-30 09:19 | NUR ---
ASSUME CARE 1900. PT/VITALS STABLE. ALERT BUT DOES NOT REALLY RESPOND TO NAME. HOWEVER WITHH RESPOND TO TOUCH AND SOMETIMES NOISE. MOANS WITH ANY ROM. SR/BBB NOTED ON MONITOR. NO DITRESS THROUGH THE NIGHT. PT IS VERY EDEMATOUS. ADEQUATE URINE OUTPUT NOTED THROUGH THE SHIFT. TOLERATING TUBE FEEDING WELL. ASSESSMENT CHARTED. PROGRESSING POORLY WITH POC. WILL CONTINUE TO MONITOR AND FOLLOW WITH POC
[2020-04-30 11:35] VITALS: BP 140/57
[2020-04-30 16:15] VITALS: BP 141/58
--- NOTE | 2020-04-30 19:23 | NUR ---
ASSUMED CARE OF PT AT SHIFT CHANGE. ASSESSMENTS CHARTED. MEDS GIVEN PER JUN. PT NOT ALERT OR ORIENTED. NO APPARENT PAIN, GAVE IV PAIN MEDS PRIOR TO DRESSING CHANGE. TUBE FEED CONTINUES. R HAND REMAINS IN RESTRAINTS. WILL CONTINUE TO MONITOR AND FOLLOW POC.
[2020-04-30 20:53] VITALS: BP 137/59
--- NOTE | 2020-05-01 03:50 | NUR ---
Assumed pt care at 1900. Pt is drowsy and moans. Pt doesn't follow command. No sign of distress noted in pt. Repsitioning done. Assessment completed and documented. Pain med administered accordingly. Scheduled meds administered to pt. Wound care done. No acute events through the night. Continue to monitor. No further needs at this time.
[2020-05-01 04:00] VITALS: BP 144/52
[2020-05-01 05:33] LABS: ALBUMIN 1.4 g/dL (3.4-5.0); CALCIUM 8.4 mg/dL (8.5-10.1); CREATININE 4.7 mg/dL (0.6-1.0); POTASSIUM 5.2 mmol/L (3.5-5.1)
[2020-05-01 08:00] VITALS: BP 143/71
[2020-05-01 12:10] VITALS: BP 159/77
--- NOTE | 2020-05-01 13:48 | NUR ---
PT AWAKE AND AKERT TO SELF. VSS, TUBE FEEDING PER [facility] TO DD. SR ON TELE. WILL CONTINUE TO MONITOR.
[2020-05-01 15:25] VITALS: BP 180/70
--- NOTE | 2020-05-01 17:41 | NUR ---
spoke with son Antonio. Patient to have peg tube and ostomy planned sx in am. Discussed dc planning and likely LTAC. Left brochures in room for son to review. Aware no visitors at [facility] at this time allows one.
[2020-05-01 19:44] VITALS: BP 163/96
[2020-05-02 03:42] VITALS: BP 183/85
--- NOTE | 2020-05-02 04:38 | NUR ---
PT LETHERGIC, AND WITHDRAWN. VITALS STABLE. NO APPARENT PAIN, APART FROM DURING WOUND CARE AND TURNS. FENTANYL X 1 WITH WOUND CARE. NO OTHER CONCERNS. PT TUBE FEEDING ON HOLD, FOR POSSIBLE PEG TUBE AND COLOSTOMY BAG PLACEMENT. WILL CONTINUE TO FOLLOW POC.
[2020-05-02 05:24] LABS: CALCIUM 8.7 mg/dL (8.5-10.1); CREATININE 4.1 mg/dL (0.6-1.0); POTASSIUM 5.2 mmol/L (3.5-5.1)
[2020-05-02 07:31] VITALS: BP 169/66
[2020-05-02 08:46] LABS: HEMOGLOBIN 6.8 gm/dL (12.0-15.0); MCV 93.9 fL (80.0-100.0)
[2020-05-02 08:48] LABS: HEMATOCRIT 22.1 % (37.0-47.0); MCHC 30.9 g/dL (28.0-37.0); RBC 2.35 mil/uL (4.20-5.00); RDW 16.1 % (10.5-14.5); WBC 13.4 thou/uL (4.0-11.0)
[2020-05-02 10:11] VITALS: BP 124/51
--- NOTE | 2020-05-02 14:29 | NUR ---
PT CAME BACK FROM PACU, ABDOMINAL BINDER ON, NEW DRESSING/DEBRIDEMENT DONE ON THE THE L GLUTEAL, RN WILL NOT CHANGE THE DRESSING THIS SHIFT SINCE IT WAS DONE IN THE OR. FOAM PAD BROUGHT. PT PRESENTED WITH G TUBE AT THE R ABDOMEN, ABDOMINAL INCISION WITH VACUUM SUCTION DRESSING. WHILE CHECKING THE POSTERIOR OPERATIVE SITE PT WAS FOUND TO BE GROANING. DOBHOFF IS NO LONGER PLACED INSIDE THE PT THEREFORE RN HAS NO ACCESS TO PROVIDE PO MEDICATION SINCE PT IS NPO. RN WILL DISCUSS WITH HOSPITALIST REGARDING ANALGESIC OPTIONS FOR THE PT. COLOSTOMY IS RED, THERES RESIDUAL BLOOD IN THE BAG FROM THE OPERATION. KERLIX DRESSING IS SOAKED RED FROM THE BLOOD AT THE POSTERIOR SITE. G TUBE DRESSING IS DRY/INTACT, SOAKED IN RED AGAIN FROM THE OPERATION. NO BLOOD IN THE VACUUM SUCTION DRESSING TUBING NOTED. PT IS UNABLE TO VERBALIZE WHETHER SHE IS HAVING PAIN. PT WITHDRAWS FROM PAIN. PUPILS ARE EQUALLY REACTIVE SLUGGISHLY AT 4MM. LUNGS ARE DIMINISHED BILATERALLY. VS STABLE. COMMUNICATING WITH THE ROAD MONKEY ABOUT OBTAINING VS.
[2020-05-02 20:22] VITALS: BP 135/56
[2020-05-02 23:07] VITALS: BP 117/33
[2020-05-03 00:10] VITALS: BP 106/76
[2020-05-03 00:45] VITALS: BP 141/51
--- NOTE | 2020-05-03 03:34 | NUR ---
Assumed pt care at 1900,pt awake,answers to name and yes/no to simple questions.Denied pain on assessment,VSS. Plate Inspector assisted pt with call to sister Danitza at HS to pray with her per sister request;pt yes at intervals while on phone. Smiley patent to DD with yellow urine,fecal mgt system in place. IVF infusing via RIJ.PEG/Colostomy/Midline incision with prevena dsg C/D/I. Pt on telemetry was SR/BBB. Around 0030 monitor showed VF/VTACH,on checking pt non responsive,VSS,pupils reactive,LS congested,IVF dcd. EKG done showed Acute VA,/Monika notified,pt transfered to ICU. Code blue initiated shortly after since pt became pulseless. CPR done until called off. Time of 0146. Son Antonio had been contacted by charge nurse of change in condition during the code.
--- NOTE | 2020-05-03 07:29 | EKG ---
[address] [place] [address] ELECTROCARDIOGRAM REPORT Name: BAILEE DEE Room #: 238-[facility] IN M.R.#: [id number] Admission: 04/10/20 Attend Phys: Victor Hugo Melo MD Discharge: 05/03/20 Date of : 50 Report #: [id number] [facility] Test Date: 2020-05-03 Test Time: 00:32:14 Pat Name: BAILEE NOVA Department: Room: 238 Gender: F Sales And Marketing Agent: YOHAN : 1950 Requested By: Victor Hugo Melo Order Number: [id number] MD: Hilario Melvin Measurements Intervals [place] Rate: 67 P: 50 NH: 173 QRS: -116 QRSD: 180 T: 86 QT: 425 QTc: 449 Interpretive Statements Sinus rhythm Right bundle branch block Repol abnrm suggests ischemia, lateral leads Compared to ECG 04/15/2020 11:18:14 Possible ischemia now present Ventricular premature complex(es) no longer present Left ventricular hypertrophy no longer present Electronically Signed On 05-03-2020 7:28:54 LOAD TEST MECHANIC by Hilario Melvin [email or web address] <ELECTRONICALLY SIGNED> By: Hilario Melvin MD, FAC 05/03/20 0728 Hilario Melvin MD, [facility] /EPI
--- NOTE | 2020-05-03 14:50 | EKG ---
[place] [address] [facility] [place] [address] ELECTROCARDIOGRAM REPORT Name: BAILEE DEE Room #: 238-[facility] IN M.R.#: [id number] Admission: 04/10/20 Attend Phys: Victor Hugo Melo MD Discharge: 05/03/20 Date of : 50 Report #: [id number] [facility] Test Date: 2020-05-03 Test Time: 00:26:37 Pat Name: BAILEE NOVA Department: Room: 238 Gender: F Case Resolution Specialist: YOHAN : 1950 Requested By: Victor Hugo Melo Order Number: [id number] MD: Hilario Melvin Measurements Intervals [place] Rate: 127 P: 0 CA: 168 QRS: -153 QRSD: 172 T: 79 QT: 398 QTc: 579 Interpretive Statements Sinus tachycardia with irregular rate LAE, consider biatrial enlargement Right bundle branch block Inferior infarct, acute (RCA) Probable RV involvement, suggest recording right precordial leads Compared to ECG 04/15/2020 11:18:14 Myocardial infarct finding now present Sinus rhythm no longer present Ventricular premature complex(es) no longer present Left ventricular hypertrophy no longer present Early repolarization no longer present Electronically Signed On 05-03-2020 14:50:30 SAWMILL SUPERVISOR by Hilario Melvin [email or web address] <ELECTRONICALLY SIGNED> By: Hilario Melvin MD, [facility] 05/03/20 1450 002 Hilario Melvin MD, [facility] /EPI
--- NOTE | 2020-05-07 17:06 | PATH ---
[facility] [address] [place] [address] PATHOLOGY RPT PROCEDURE Name: CARLA NOVATOPTON Room #: 238-[facility] IN M.R.#: [id number] Admission: 04/10/20 Date of : 50 Discharge: 05/03/20 Report #: [id number] Path Case #: [id number] [facility] Accession Number: [id number] . 01 Material submitted: . PART A: buttock - LEFT GLUTEAL BONE. Modifiers: left PART B: buttock - LEFT GLUTEAL TISSUE. Modifiers: left . 01 Clinician provided ICD-10: A41.9 . 01 Clinical history: . EXCISIONAL ULTRASONIC DEBRIDEMENT OF LEFT GLUEEAL DECUBITUS ULCER,GASTROTOMY -20 SLOVENIAN,COLOSTOMY . 01 Diagnosis: A. Bone "left gluteal bone": - Hemorrhage, focal fibrosis, chronic inflammation and degenerative changes. . B. Soft tissue "left gluteal tissue debridement": - Extensive gangrenous type necrosis with acute inflammation with fat necrosis and surrounding granulation tissue. (SHA:sophia; 05/07/2020) QMS 05/07/2020 1334 Local . 01 Electronically signed: . Ld Borges MD, Pathologist NPI- [id number] . 01 Gross description: . A. Received in formalin labeled "Mala Fernández, left gluteal bone" are multiple fragments of brandt-brown bone measuring in aggregate 2.8 x 2.3 x 0.5 cm. The specimen is submitted entirely in cassette A1 following decalcification. . B. Received in formalin labeled "Mala Fernández, left gluteal tissue" are multiple fragments of brandt-spain cyst necrotic soft tissue measuring in aggregate 3.5 x 3.5 x 1.4 cm. Pet Technologist tissue is submitted in cassette B1. ([facility]; 05/04/2020) [facility] 05/07/2020 1335 Local . 01 Pathologist provided ICD-10: M89.8X8, I96 . 01 CPT . 178910, [id number], [id number] [address] [address] PATHOLOGY RPT PROCEDURE Name: MALA FERNÁNDEZ Room #: 238-P [facility] IN M.R.#: [id number] Admission: 04/10/20 Date of : 50 Discharge: 05/03/20 Report #: [id number] Path Case #: [id number] Specimen Comment: A courtesy copy of this report has been sent to [phone] Specimen Comment: Report sent to Performed at: [address], [place], [place] [id number] MD Ld Borges MD Phone: [phone]
== END 2020-05-03 01:46 | DRG 853 ==
LOC: ER 17:48 → 2N 22:30 → EROBS 22:30 → 2N 04-11 16:39 → ICU 04-13 11:04 → 2N 04-17 17:35 → ICU 05-03 01:27
PROVIDERS: Anesthesiology; Emergency Medicine; Hospitalist; Internal Medicine Nephrology; Specialist; Surgery; ADMIT Family Medicine; ATTEND Family Medicine
PROC: 0JBM0ZZ Excision of Left Upper Leg Subcutaneous Tissue and Fascia, Open Approach (ICD-10-PCS; principal; 2020-04-14)
PROC: 30233N1 Transfusion of Nonautologous Red Blood Cells into Peripheral Vein, Percutaneous Approach (ICD-10-PCS; principal; 2020-04-14)
PROC: 02HV33Z Insertion of Infusion Device into Superior Vena Cava, Percutaneous Approach (ICD-10-PCS; principal; 2020-04-14)
PROC: 0QB30ZZ Excision of Left Pelvic Bone, Open Approach (ICD-10-PCS; principal; 2020-04-14)
PROC: 0QB30ZZ Excision of Left Pelvic Bone, Open Approach (ICD-10-PCS; 2020-04-18)
PROC: 0JBM0ZZ Excision of Left Upper Leg Subcutaneous Tissue and Fascia, Open Approach (ICD-10-PCS; 2020-04-18)
PROC: 0QB30ZZ Excision of Left Pelvic Bone, Open Approach (ICD-10-PCS; 2020-05-02)
PROC: 0D960ZZ Drainage of Stomach, Open Approach (ICD-10-PCS; 2020-05-02)
PROC: 0JBM0ZZ Excision of Left Upper Leg Subcutaneous Tissue and Fascia, Open Approach (ICD-10-PCS; 2020-05-02)
PROC: 0D1L0Z4 Bypass Transverse Colon to Cutaneous, Open Approach (ICD-10-PCS; 2020-05-02)
PROC: 5A12012 Performance of Cardiac Output, Single, Manual (ICD-10-PCS; 2020-05-03)
DX: A41.9 Sepsis, unspecified organism (principal); L89.893 Pressure ulcer of other site, stage 3; E43 Unspecified severe protein-calorie malnutrition; G93.41 Metabolic encephalopathy; N17.0 Acute kidney failure with tubular necrosis; N39.0 Urinary tract infection, site not specified; L02.31 Cutaneous abscess of buttock; I69.354 Hemiplegia and hemiparesis following cerebral infarction affecting left non-dominant side; I47.1 Supraventricular tachycardia; I13.0 Hypertensive heart and chronic kidney disease with heart failure and stage 1 through stage 4 chronic kidney disease, or unspecified chronic kidney disease; I42.9 Cardiomyopathy, unspecified; M86.8X8 Other osteomyelitis, other site; Z68.42 Body mass index [BMI] 45.0-49.9, adult; I50.9 Heart failure, unspecified; E78.00 Pure hypercholesterolemia, unspecified; L89.320 Pressure ulcer of left buttock, unstageable; L89.220 Pressure ulcer of left hip, unstageable; E87.6 Hypokalemia; E11.649 Type 2 diabetes mellitus with hypoglycemia without coma; Z20.822 Contact with and (suspected) exposure to COVID-19; I25.10 Atherosclerotic heart disease of native coronary artery without angina pectoris; I49.3 Ventricular premature depolarization; N76.89 Other specified inflammation of vagina and vulva; N18.9 Chronic kidney disease, unspecified; E11.22 Type 2 diabetes mellitus with diabetic chronic kidney disease; E78.5 Hyperlipidemia, unspecified; D64.9 Anemia, unspecified; E11.69 Type 2 diabetes mellitus with other specified complication; K59.00 Constipation, unspecified; E87.5 Hyperkalemia; E66.01 Morbid (severe) obesity due to excess calories; Z88.2 Allergy status to sulfonamides; Z79.899 Other long term (current) drug therapy
CPT/HCPCS: 10078; 10081; 50010; 50093; 50101; 50386; 50403; 50455; 50555; 50953; 50962; 51412; 51712; 52265; 53307; 54118; 56462; 56524; 56525; 56526; 56527; 56530; 56805; 57092; 57114; 57119; 57120; 57192; 62110; 62900; 70005; 85076